=== PATIENT | female | born 1935 | race Caucasian/White ===

== ENCOUNTER 2017-08-25 12:49 | Inpatient (IN) ==
[2017-08-25] MEDS ORDERED: methylPREDNISolone SOD SUC 125 MG/2 ML VIAL IV STA (13:01)
[2017-08-25 13:24] LABS: Basophils % 0.4 % (0.0-0.8); Eosinophils # 0.1 10*3/uL (0.0-0.87); Eosinophils % 1.5 % (0.00-10.9); Hemoglobin 11.1 GM/DL (12.0-16.0); Immature Granulocytes % 0.5 %; Immature Granulocytes Absolute 0.04 #; Lymphocytes # 0.8 10*3/uL (1.4-4.0); Mean Corpuscular HGB Conc 32.6 GM/DL (32-36); Mean Corpuscular Hemoglobin 28 PG (27-34); Mean Corpuscular Volume 84.6 FL (87-102); Mean Platelet Volume 10.6 FL (9.6-12.0); Monocytes # 0.4 10*3/uL (0.11-0.8); Monocytes % 5.3 % (1.7-12.7); Neutrophils # 6.7 10*3/uL (1.4-7.4); Neutrophils % 82.3 % (38.7-73.9); Platelet Count 206 T/CUMM (130-400); Red Blood Count 4.02 MC/CUMM (3.8-5.5); Red Cell Distribution Width 15.9 % (9.3-17.3); White Blood Count 8.1 T/CUMM (4-12)
[2017-08-25] MEDS ORDERED: methylPREDNISolone SOD SUC 40 MG/1 ML VIAL ONE (13:30)
[2017-08-25] MEDS: ALBUTEROL 2.5 MG/3 ML NEB RESP TX SCH ×3 (13:33→13:43)
[2017-08-25 13:49] LABS: Albumin 3.5 G/DL (3.4-5.0); Calcium 9.1 MG/DL (8.5-10.1); Osmolality,Calculated 279.7 MOS/KG (273-304); Potassium 3.7 MMOL/L (3.5-5.1); Total Protein 6.9 G/DL (6.4-8.3); Troponin I Only 0.018 NG/ML (0.00-0.045)
[2017-08-25] MEDS ORDERED: GLUCAGON 1 MG VIAL IM PRN (15:54)
[2017-08-25] MEDS ORDERED: ONDANSETRON 4 MG/2 ML VIAL IV PRN (15:54)
[2017-08-25] MEDS ORDERED: ACETAMINOPHEN 325 MG TABLET PO PRN (15:54)
[2017-08-25] MEDS ORDERED: FUROSEMIDE 40 MG/4 ML VIAL IV STA (15:54)
[2017-08-25] MEDS ORDERED: DEXTROSE 50% 25 GM/50 ML VIAL IV PRN (15:54)
[2017-08-25] MEDS ORDERED: MORPHINE 2 MG/1 ML SYRINGE IV PRN (15:59)
[2017-08-25] MEDS ORDERED: FUROSEMIDE 40 MG/4 ML VIAL ONE (16:29)
[2017-08-25] MEDS ORDERED: ENOXAPARIN 60 MG/0.6 ML SYRINGE ONE (16:29)
[2017-08-25] MEDS: ENOXAPARIN 60 MG/0.6 ML SYRINGE SUBCUT SCH (16:34)
[2017-08-25] MEDS ORDERED: INSULIN LISPRO 100 UNIT/ML ONE (17:12)
[2017-08-25] MEDS: FUROSEMIDE 40 MG/4 ML VIAL IV SCH (17:21)
[2017-08-25] MEDS: INSULIN LISPRO 100 UNIT/ML SUBCUT SCH ×2 (17:57→21:56)
[2017-08-25 19:44] LABS: CKMB % 2.7 %; Troponin I Only 0.015 NG/ML (0.00-0.045)
[2017-08-25] MEDS ORDERED: OXYBUTYNIN XL 10 MG TABLET PO SCH (21:00)
[2017-08-25] MEDS ORDERED: CARVEDILOL 6.25 MG TABLET PO SCH (21:00)
[2017-08-25] MEDS: hydrOXYzine HCL 10 MG TABLET PO SCH (21:41)
[2017-08-25] MEDS: DOCUSATE SODIUM 100 MG CAPSULE PO SCH (21:42)
[2017-08-25] MEDS: GABAPENTIN 300 MG CAPSULE PO SCH (21:43)
[2017-08-25] MEDS: SIMVASTATIN 20 MG TABLET PO SCH (21:44)
[2017-08-25] MEDS: CETIRIZINE 10 MG TABLET PO SCH (21:44)
[2017-08-25] MEDS: BUDESONIDE/FORMOTEROL 160-4.5 INHALER 6 GM INH SCH (21:49)
[2017-08-25 22:54] LABS: CKMB % 2.8 %; Troponin I Only < 0.015 NG/ML (0.00-0.045)
[2017-08-25 23:38] LABS: Apearance,Urine CLEAR (Clear); Bacteria,Urine Few /HPF (Few); Bilirubin,Urine Negative (Negative); Blood, Urine Small mg/dL (Negative); Glucose,Urine (UA) Negative (Negative); Hyaline Casts,Urine 1 /LPF (0-3); Ketones,Urine Negative (Negative); Nitrite,Urine Negative (Negative); Protein,Urine Negative; RBC,Urine 1 /HPF (0-4); Squamous Epithelial Cell,Urine Occasional /HPF (0-10); Urine Color Straw (Yellow); Urine Specific Gravity 1.005 (1.001-1.035); Urine Urobilinogen < 2.0 EU/DL (0.2-1.0); WBC,Urine <1 /HPF (0-6)
[2017-08-26 01:30] LABS: Basophils % 0.2 % (0.0-0.8); Eosinophils % 0.2 % (0.00-10.9); Hematocrit 32.3 VOL% (35.7-47.0); Hemoglobin 10.5 GM/DL (12.0-16.0); Immature Granulocytes % 0.5 %; Immature Granulocytes Absolute 0.03 #; Lymphocytes # 0.8 10*3/uL (1.4-4.0); Lymphocytes % 12.5 % (21.3-54.2); Mean Corpuscular HGB Conc 32.5 GM/DL (32-36); Mean Corpuscular Hemoglobin 27 PG (27-34); Mean Corpuscular Volume 83.9 FL (87-102); Monocytes # 0.3 10*3/uL (0.11-0.8); Monocytes % 5.5 % (1.7-12.7); Neutrophils % 81.1 % (38.7-73.9); Platelet Count 144 T/CUMM (130-400); Red Blood Count 3.85 MC/CUMM (3.8-5.5); Red Cell Distribution Width 15.8 % (9.3-17.3); White Blood Count 6.2 T/CUMM (4-12)
[2017-08-26 02:05] LABS: Troponin I Only < 0.015 NG/ML (0.00-0.045)
[2017-08-26] MEDS: INSULIN LISPRO 100 UNIT/ML SUBCUT SCH ×4 (07:49→23:11)
[2017-08-26 08:16] LABS: Osmolality,Calculated 284.3 MOS/KG (273-304); Potassium 3.6 MMOL/L (3.5-5.1); Risk Ratio 3.67; VLDL CHOLESTEROL 21.4 MG/DL
[2017-08-26] MEDS ORDERED: VALSARTAN 80 MG TABLET PO SCH (09:00)
[2017-08-26] MEDS ORDERED: sitaGLIPtin 100 MG TABLET PO SCH (09:00)
[2017-08-26] MEDS: ASPIRIN EC 81 MG TABLET PO SCH (09:49)
[2017-08-26] MEDS: PANTOPRAZOLE 40 MG TABLET PO SCH (09:49)
[2017-08-26] MEDS: CETIRIZINE 10 MG TABLET PO SCH ×2 (09:49→22:39)
[2017-08-26] MEDS: VALSARTAN 80 MG TABLET PO SCH (09:49)
[2017-08-26] MEDS: hydrOXYzine HCL 10 MG TABLET PO SCH ×2 (09:49→22:39)
[2017-08-26] MEDS: DOCUSATE SODIUM 100 MG CAPSULE PO SCH ×2 (09:49→22:37)
[2017-08-26] MEDS: GABAPENTIN 300 MG CAPSULE PO SCH ×3 (09:49→22:38)
[2017-08-26] MEDS: CARVEDILOL 12.5 MG TABLET PO SCH ×2 (09:49→16:41)
[2017-08-26] MEDS: sitaGLIPtin 25 MG TABLET PO SCH (09:49)
[2017-08-26] MEDS: BUDESONIDE/FORMOTEROL 160-4.5 INHALER 6 GM INH SCH ×2 (09:50→22:40)
[2017-08-26] MEDS: FUROSEMIDE 40 MG/4 ML VIAL IV SCH ×2 (09:51→15:56)
[2017-08-26] MEDS: ENOXAPARIN 60 MG/0.6 ML SYRINGE SUBCUT SCH (16:41)
[2017-08-26] MEDS: TOLTERODINE LA 4 MG CAPSULE PO SCH (22:37)
[2017-08-26] MEDS: SIMVASTATIN 20 MG TABLET PO SCH (22:39)
[2017-08-27] MEDS: INSULIN LISPRO 100 UNIT/ML SUBCUT SCH ×4 (07:24→21:15)
[2017-08-27] MEDS: VALSARTAN 80 MG TABLET PO SCH (08:44)
[2017-08-27] MEDS: sitaGLIPtin 25 MG TABLET PO SCH (08:45)
[2017-08-27] MEDS: DOCUSATE SODIUM 100 MG CAPSULE PO SCH ×2 (08:45→21:15)
[2017-08-27] MEDS: ASPIRIN EC 81 MG TABLET PO SCH (08:45)
[2017-08-27] MEDS: CARVEDILOL 12.5 MG TABLET PO SCH ×2 (08:46→16:18)
[2017-08-27] MEDS: CETIRIZINE 10 MG TABLET PO SCH ×2 (08:46→21:15)
[2017-08-27] MEDS: PANTOPRAZOLE 40 MG TABLET PO SCH (08:46)
[2017-08-27] MEDS: GABAPENTIN 300 MG CAPSULE PO SCH ×3 (08:46→21:15)
[2017-08-27] MEDS: BUDESONIDE/FORMOTEROL 160-4.5 INHALER 6 GM INH SCH ×2 (08:48→21:14)
[2017-08-27] MEDS ORDERED: VALSARTAN 80 MG TABLET PO SCH (09:00)
[2017-08-27] MEDS: FUROSEMIDE 40 MG/4 ML VIAL IV SCH (09:52)
[2017-08-27] MEDS: FUROSEMIDE 40 MG TABLET PO SCH (09:53)
[2017-08-27] MEDS: hydrOXYzine HCL 10 MG TABLET PO SCH ×2 (09:53→21:14)
[2017-08-27] MEDS: ENOXAPARIN 60 MG/0.6 ML SYRINGE SUBCUT SCH (16:19)
[2017-08-27] MEDS ORDERED: TOLTERODINE LA 4 MG CAPSULE PO SCH (21:00)
[2017-08-27] MEDS: TOLTERODINE LA 4 MG CAPSULE PO SCH (21:15)
[2017-08-27] MEDS: SIMVASTATIN 20 MG TABLET PO SCH (21:15)
[2017-08-28] MEDS: ASPIRIN EC 81 MG TABLET PO SCH (09:35)
[2017-08-28] MEDS: VALSARTAN 80 MG TABLET PO SCH (09:35)
[2017-08-28] MEDS: DOCUSATE SODIUM 100 MG CAPSULE PO SCH ×2 (09:35→22:24)
[2017-08-28] MEDS: hydrOXYzine HCL 10 MG TABLET PO SCH ×2 (09:36→22:25)
[2017-08-28] MEDS: BUDESONIDE/FORMOTEROL 160-4.5 INHALER 6 GM INH SCH ×2 (09:36→22:24)
[2017-08-28] MEDS: GABAPENTIN 300 MG CAPSULE PO SCH ×3 (09:36→22:25)
[2017-08-28] MEDS: CETIRIZINE 10 MG TABLET PO SCH ×2 (09:36→22:26)
[2017-08-28] MEDS: sitaGLIPtin 25 MG TABLET PO SCH (09:36)
[2017-08-28] MEDS: CARVEDILOL 12.5 MG TABLET PO SCH ×2 (09:36→16:12)
[2017-08-28] MEDS: FUROSEMIDE 40 MG TABLET PO SCH (09:36)
[2017-08-28] MEDS: INSULIN LISPRO 100 UNIT/ML SUBCUT SCH ×3 (09:36→18:17)
[2017-08-28] MEDS: PANTOPRAZOLE 40 MG TABLET PO SCH (09:36)
[2017-08-28] MEDS: ENOXAPARIN 60 MG/0.6 ML SYRINGE SUBCUT SCH (16:12)
[2017-08-28] MEDS ORDERED: diphenhydrAMINE CAP 25 MG CAPSULE PO ONE (17:49)
[2017-08-28] MEDS ORDERED: MAGNESIUM SULF RIDER 2 GM in PREMIX 1 EACH IV PRN (17:49)
[2017-08-28] MEDS ORDERED: POTASSIUM CHLORIDE RIDER 10 MEQ in PREMIX 1 EACH IV PRN (17:49)
[2017-08-28] MEDS ORDERED: DIAZEPAM 5 MG TABLET PO ONE (17:49)
[2017-08-28] MEDS: SIMVASTATIN 20 MG TABLET PO SCH (22:25)
[2017-08-28] MEDS: TOLTERODINE LA 4 MG CAPSULE PO SCH (22:25)
[2017-08-28] MEDS: SODIUM CHLORIDE 0.9% 1,000 ML IV SCH (22:26)
[2017-08-29 05:11] LABS: Basophils % 0.8 % (0.0-0.8); Eosinophils # 0.4 10*3/uL (0.0-0.87); Eosinophils % 9.3 % (0.00-10.9); Hematocrit 32.5 VOL% (35.7-47.0); Hemoglobin 10.4 GM/DL (12.0-16.0); Immature Granulocytes % 0.5 %; Immature Granulocytes Absolute 0.02 #; Lymphocytes # 0.7 10*3/uL (1.4-4.0); Mean Corpuscular Hemoglobin 28 PG (27-34); Mean Platelet Volume 10.7 FL (9.6-12.0); Monocytes # 0.5 10*3/uL (0.11-0.8); Monocytes % 11.9 % (1.7-12.7); Neutrophils # 2.3 10*3/uL (1.4-7.4); Neutrophils % 59.5 % (38.7-73.9); Platelet Count 155 T/CUMM (130-400); Red Blood Count 3.78 MC/CUMM (3.8-5.5); Red Cell Distribution Width 15.5 % (9.3-17.3); White Blood Count 3.8 T/CUMM (4-12)
[2017-08-29 05:43] LABS: Calcium 8.4 MG/DL (8.5-10.1); Osmolality,Calculated 285.3 MOS/KG (273-304); Potassium 3.7 MMOL/L (3.5-5.1)
[2017-08-29] MEDS: INSULIN LISPRO 100 UNIT/ML SUBCUT SCH ×5 (07:15→22:23)
[2017-08-29] MEDS ORDERED: DIAZEPAM 5 MG TABLET PO ONE (09:30)
[2017-08-29] MEDS ORDERED: diphenhydrAMINE CAP 25 MG CAPSULE PO ONE (09:30)
[2017-08-29] MEDS: VALSARTAN 80 MG TABLET PO SCH (09:53)
[2017-08-29] MEDS: hydrOXYzine HCL 10 MG TABLET PO SCH ×2 (09:53→22:23)
[2017-08-29] MEDS: CARVEDILOL 12.5 MG TABLET PO SCH ×2 (09:53→18:00)
[2017-08-29] MEDS: sitaGLIPtin 25 MG TABLET PO SCH (09:54)
[2017-08-29] MEDS: GABAPENTIN 300 MG CAPSULE PO SCH ×3 (09:54→22:22)
[2017-08-29] MEDS: PANTOPRAZOLE 40 MG TABLET PO SCH (09:54)
[2017-08-29] MEDS: DOCUSATE SODIUM 100 MG CAPSULE PO SCH ×2 (09:54→22:22)
[2017-08-29] MEDS: FUROSEMIDE 40 MG TABLET PO SCH ×2 (09:54→10:03)
[2017-08-29] MEDS: CETIRIZINE 10 MG TABLET PO SCH ×2 (09:54→22:23)
[2017-08-29] MEDS: ASPIRIN EC 81 MG TABLET PO SCH (09:54)
[2017-08-29] MEDS: BUDESONIDE/FORMOTEROL 160-4.5 INHALER 6 GM INH SCH ×2 (10:00→22:24)
[2017-08-29] MEDS ORDERED: LIDOCAINE 1% 20 ML VIAL ONE (11:53)
[2017-08-29] MEDS ORDERED: MIDAZOLAM 2 MG/2 ML VIAL ONE (11:54)
[2017-08-29] MEDS ORDERED: MEPERIDINE 25 MG/1 ML VIAL ONE (11:54)
[2017-08-29] MEDS ORDERED: HEPARIN 5,000 UNIT/1 ML VIAL ONE (12:08)
[2017-08-29] MEDS: SODIUM CHLORIDE 0.9% 1,000 ML IV SCH (13:58)
[2017-08-29] MEDS: ENOXAPARIN 60 MG/0.6 ML SYRINGE SUBCUT SCH (18:00)
[2017-08-29] MEDS: TOLTERODINE LA 4 MG CAPSULE PO SCH (22:22)
[2017-08-29] MEDS: SIMVASTATIN 20 MG TABLET PO SCH (22:23)
[2017-08-30 05:31] LABS: Basophils % 0.7 % (0.0-0.8); Eosinophils # 0.4 10*3/uL (0.0-0.87); Eosinophils % 9.6 % (0.00-10.9); Hematocrit 30.6 VOL% (35.7-47.0); Hemoglobin 9.8 GM/DL (12.0-16.0); Immature Granulocytes % 0.5 %; Immature Granulocytes Absolute 0.02 #; Lymphocytes # 0.8 10*3/uL (1.4-4.0); Lymphocytes % 17.7 % (21.3-54.2); Mean Corpuscular Hemoglobin 28 PG (27-34); Mean Corpuscular Volume 86.7 FL (87-102); Mean Platelet Volume 10.6 FL (9.6-12.0); Monocytes # 0.5 10*3/uL (0.11-0.8); Monocytes % 12.4 % (1.7-12.7); Neutrophils # 2.6 10*3/uL (1.4-7.4); Neutrophils % 59.1 % (38.7-73.9); Platelet Count 148 T/CUMM (130-400); Red Blood Count 3.53 MC/CUMM (3.8-5.5); Red Cell Distribution Width 15.4 % (9.3-17.3); White Blood Count 4.4 T/CUMM (4-12)
[2017-08-30 06:00] LABS: Calcium 8.6 MG/DL (8.5-10.1); Osmolality,Calculated 286.1 MOS/KG (273-304); Potassium 3.9 MMOL/L (3.5-5.1)
[2017-08-30 06:01] LABS: Calcium 8.6 MG/DL (8.5-10.1); Potassium 3.9 MMOL/L (3.5-5.1)
[2017-08-30] MEDS: INSULIN LISPRO 100 UNIT/ML SUBCUT SCH ×2 (08:36→12:15)
[2017-08-30] MEDS: sitaGLIPtin 25 MG TABLET PO SCH (09:52)
[2017-08-30] MEDS: VALSARTAN 80 MG TABLET PO SCH (09:52)
[2017-08-30] MEDS: ASPIRIN EC 81 MG TABLET PO SCH (09:53)
[2017-08-30] MEDS: CETIRIZINE 10 MG TABLET PO SCH (09:53)
[2017-08-30] MEDS: PANTOPRAZOLE 40 MG TABLET PO SCH (09:53)
[2017-08-30] MEDS: FUROSEMIDE 40 MG TABLET PO SCH (09:53)
[2017-08-30] MEDS: CARVEDILOL 12.5 MG TABLET PO SCH (09:53)
[2017-08-30] MEDS: DOCUSATE SODIUM 100 MG CAPSULE PO SCH (09:53)
[2017-08-30] MEDS: hydrOXYzine HCL 10 MG TABLET PO SCH (09:53)
[2017-08-30] MEDS: GABAPENTIN 300 MG CAPSULE PO SCH ×2 (09:53→13:27)
[2017-08-30] MEDS: BUDESONIDE/FORMOTEROL 160-4.5 INHALER 6 GM INH SCH (09:54)
[2017-08-30 17:13] VITALS: BP 129/62
== END 2017-08-30 17:00 | disposition home health service (06) | DRG 287 ==
LOC: EDBD → EDUNIT# → N.ED 12:49 → N.EDINP 15:54 → N.TELEN 18:50
PROVIDERS: ADMIT Family Medicine; ATTEND Family Medicine

== ENCOUNTER 2017-09-23 10:39 | Inpatient (IN) ==
[2017-09-23] MEDS ORDERED: methylPREDNISolone SOD SUC 125 MG/2 ML VIAL IV STA (11:00)
[2017-09-23] MEDS ORDERED: ONDANSETRON 4 MG/2 ML VIAL IV STA (11:00)
[2017-09-23] MEDS ORDERED: cefTRIAXone 1,000 MG in SODIUM CHLORIDE 0.9% 100 ML IV STA (11:00)
[2017-09-23] MEDS ORDERED: ALBUTEROL NEB SOLN 5 MG/ML 20 ML/BOTTLE RESP TX SCH (11:00)
[2017-09-23] MEDS ORDERED: SODIUM CHLORIDE 0.9% 500 ML IV STA (11:00)
[2017-09-23 11:42] LABS: ABG Base Excess 1.2 MMOL/L (-2.5-2.5); ABG HCO3 25.5 MMOL/L (20-26); ABG Oxygen Saturation 95.7 % (95-100); ABG PCO2 40.3 MM HG (35-48); ABG PH 7.415 (7.35-7.45); ABG PO2 75.6 MM HG (80-95); ABG TCO2 23.3 MMOL/L (23-27)
[2017-09-23] MEDS ORDERED: ONDANSETRON 4 MG/2 ML VIAL ONE (11:53)
[2017-09-23] MEDS ORDERED: cefTRIAXone 1,000 MG VIAL ONE (11:53)
[2017-09-23] MEDS ORDERED: methylPREDNISolone SOD SUC 125 MG/2 ML VIAL ONE (11:53)
[2017-09-23 12:20] LABS: Basophils % 0.7 % (0.0-0.8); Eosinophils # 0.2 10*3/uL (0.0-0.87); Eosinophils % 4.6 % (0.00-10.9); Hematocrit 33.3 VOL% (35.7-47.0); Hemoglobin 10.3 GM/DL (12.0-16.0); Immature Granulocytes % 0.2 %; Immature Granulocytes Absolute 0.01 #; Lymphocytes # 0.4 10*3/uL (1.4-4.0); Lymphocytes % 10.2 % (21.3-54.2); Mean Corpuscular HGB Conc 30.9 GM/DL (32-36); Mean Corpuscular Hemoglobin 28 PG (27-34); Mean Corpuscular Volume 89.8 FL (87-102); Mean Platelet Volume 11.5 FL (9.6-12.0); Monocytes # 0.3 10*3/uL (0.11-0.8); Monocytes % 6.8 % (1.7-12.7); Neutrophils # 3.2 10*3/uL (1.4-7.4); Neutrophils % 77.5 % (38.7-73.9); Platelet Count 97 T/CUMM (130-400); Red Blood Count 3.71 MC/CUMM (3.8-5.5); Red Cell Distribution Width 16.1 % (9.3-17.3); White Blood Count 4.1 T/CUMM (4-12)
[2017-09-23 12:35] LABS: INR 1.1; PT Patient Result 11.7 SECS
[2017-09-23 12:47] LABS: Alanine Aminotransferase 20 U/L (13-56); Albumin 3.3 G/DL (3.4-5.0); Alkaline Phosphatase 64 U/L (45-117); Aspartate Amino Transferase 15 U/L (0-37); Blood Urea Nitrogen 22 MG/DL (7-18); Calcium 8.7 MG/DL (8.5-10.1); Glucose 104 MG/DL (74-106); Osmolality,Calculated 275.8 MOS/KG (273-304); Potassium 4.4 MMOL/L (3.5-5.1); Sodium 137 MMOL/L (136-145); Total Protein 6.7 G/DL (6.4-8.3); Troponin I Only < 0.015 NG/ML (0.00-0.045)
[2017-09-23 12:59] LABS: Apearance,Urine CLOUDY (Clear); Bacteria,Urine Moderate /HPF (Few); Bilirubin,Urine Negative (Negative); Blood, Urine Small mg/dL (Negative); Glucose,Urine (UA) Negative (Negative); Ketones,Urine Negative (Negative); Mucus,Urine Occasional /LPF (Occasional); Nitrite,Urine Negative (Negative); Protein,Urine 30 MG/DL; RBC,Urine 8 /HPF (0-4); Urine Color Amber (Yellow); Urine Specific Gravity 1.019 (1.001-1.035); WBC,Urine 658 /HPF (0-6)
[2017-09-23 13:05] LABS: Hypochromasia Slight; Target Cells Slight
[2017-09-23] MEDS ORDERED: methylPREDNISolone SOD SUC 40 MG/1 ML VIAL IV SCH (15:26)
[2017-09-23] MEDS ORDERED: ALBUTEROL 2.5 MG/3 ML NEB RESP TX PRN (15:26)
[2017-09-23] MEDS ORDERED: CETIRIZINE 5 MG TABLET PO PRN (15:26)
[2017-09-23] MEDS ORDERED: diphenhydrAMINE CAP 25 MG CAPSULE PO PRN (15:26)
[2017-09-23] MEDS ORDERED: GLUCAGON 1 MG VIAL IM PRN (15:26)
[2017-09-23] MEDS ORDERED: MORPHINE 4 MG/1 ML VIAL IV PRN (15:26)
[2017-09-23] MEDS ORDERED: traMADol 50 MG TABLET PO PRN (15:26)
[2017-09-23] MEDS ORDERED: ACETAMINOPHEN 325 MG TABLET PO PRN (15:26)
[2017-09-23] MEDS ORDERED: ONDANSETRON 4 MG/2 ML VIAL IV PRN (15:26)
[2017-09-23] MEDS ORDERED: DEXTROSE 50% 25 GM/50 ML VIAL IV PRN (15:26)
[2017-09-23] MEDS ORDERED: ALBUTEROL/IPRATROPIUM 3 ML NEB RESP TX PRN (15:26)
[2017-09-23] MEDS ORDERED: PSEUDOEPHEDRINE 30 MG TABLET PO PRN (15:45)
[2017-09-23] MEDS ORDERED: LEVOFLOXACIN INJ 500 MG in PREMIX 1 EACH IV ONE (16:00)
[2017-09-23] MEDS: INSULIN REGULAR 100 UNIT/ML SUBCUT SCH ×2 (16:32→21:10)
[2017-09-23] MEDS: FUROSEMIDE 20 MG/2 ML VIAL IV SCH (16:33)
[2017-09-23] MEDS: SODIUM CHLORIDE 0.9% 1,000 ML IV SCH (16:37)
[2017-09-23] MEDS: DOCUSATE SODIUM 100 MG CAPSULE PO SCH (21:09)
[2017-09-23] MEDS: SIMVASTATIN 20 MG TABLET PO SCH (21:10)
[2017-09-23] MEDS: CARVEDILOL 6.25 MG TABLET PO SCH (21:10)
[2017-09-23] MEDS: GABAPENTIN 300 MG CAPSULE PO SCH (21:10)
[2017-09-23] MEDS: TOLTERODINE LA 4 MG CAPSULE PO SCH (21:10)
[2017-09-23] MEDS: BUDESONIDE/FORMOTEROL 160-4.5 INHALER 6 GM INH SCH (22:00)
[2017-09-24 06:13] LABS: Hematocrit 30.5 VOL% (35.7-47.0); Hemoglobin 9.5 GM/DL (12.0-16.0); Immature Granulocytes % 0.7 %; Immature Granulocytes Absolute 0.02 #; Lymphocytes # 0.3 10*3/uL (1.4-4.0); Lymphocytes % 11.1 % (21.3-54.2); Mean Corpuscular HGB Conc 31.1 GM/DL (32-36); Mean Corpuscular Hemoglobin 27 PG (27-34); Mean Corpuscular Volume 87.9 FL (87-102); Mean Platelet Volume 11.5 FL (9.6-12.0); Monocytes # 0.1 10*3/uL (0.11-0.8); Monocytes % 3.6 % (1.7-12.7); Neutrophils # 2.6 10*3/uL (1.4-7.4); Neutrophils % 84.6 % (38.7-73.9); Platelet Count 96 T/CUMM (130-400); Red Blood Count 3.47 MC/CUMM (3.8-5.5); Red Cell Distribution Width 15.9 % (9.3-17.3); White Blood Count 3.1 T/CUMM (4-12)
[2017-09-24 06:49] LABS: Albumin 3.1 G/DL (3.4-5.0); Calcium 8.7 MG/DL (8.5-10.1); Osmolality,Calculated 284.5 MOS/KG (273-304); Potassium 4.3 MMOL/L (3.5-5.1); Total Protein 6.2 G/DL (6.4-8.3)
[2017-09-24] MEDS: SODIUM CHLORIDE 0.9% 1,000 ML IV SCH (07:18)
[2017-09-24 07:59] LABS: Band Neutrophils 4 % (0-10); Lymphocytes 9 % (20-55); Platelet Estimate Decreased; Segmented Neutrophils 86 % (50-85); Total Cells Counted 100
[2017-09-24] MEDS ORDERED: PANTOPRAZOLE 40 MG VIAL IV SCH (09:00)
[2017-09-24] MEDS ORDERED: ALBUTEROL/IPRATROPIUM 3 ML NEB RESP TX ONE (09:47)
[2017-09-24] MEDS ORDERED: SODIUM CHLORIDE 0.9% 1,000 ML IV SCH (10:00)
[2017-09-24] MEDS: FUROSEMIDE 40 MG TABLET PO SCH (10:02)
[2017-09-24] MEDS: GABAPENTIN 300 MG CAPSULE PO SCH ×3 (10:02→21:28)
[2017-09-24] MEDS: sitaGLIPtin 25 MG TABLET PO SCH (10:02)
[2017-09-24] MEDS: VALSARTAN 80 MG TABLET PO SCH (10:02)
[2017-09-24] MEDS: INSULIN REGULAR 100 UNIT/ML SUBCUT SCH ×4 (10:02→21:28)
[2017-09-24] MEDS: PANTOPRAZOLE 40 MG TABLET PO SCH (10:02)
[2017-09-24] MEDS: CARVEDILOL 6.25 MG TABLET PO SCH ×2 (10:03→16:26)
[2017-09-24] MEDS: ASPIRIN EC 81 MG TABLET PO SCH (10:03)
[2017-09-24] MEDS: BUDESONIDE/FORMOTEROL 160-4.5 INHALER 6 GM INH SCH ×2 (10:03→21:29)
[2017-09-24] MEDS: DOCUSATE SODIUM 100 MG CAPSULE PO SCH ×2 (10:03→21:28)
[2017-09-24] MEDS: FUROSEMIDE 20 MG/2 ML VIAL IV SCH (10:11)
[2017-09-24] MEDS ORDERED: FUROSEMIDE 20 MG/2 ML VIAL IV ONE (10:37)
[2017-09-24] MEDS ORDERED: FUROSEMIDE 40 MG/4 ML VIAL IV ONE (10:54)
[2017-09-24] MEDS ORDERED: cefTRIAXone 1,000 MG in SODIUM CHLORIDE 0.9% 100 ML IV SCH (12:00)
[2017-09-24] MEDS: methylPREDNISolone SOD SUC 40 MG/1 ML VIAL IV SCH ×2 (12:04→21:28)
[2017-09-24] MEDS: LEVOFLOXACIN INJ 500 MG in PREMIX 1 EACH IV SCH (12:05)
[2017-09-24] MEDS: cefTRIAXone 1,000 MG in SODIUM CHLORIDE 0.9% 100 ML IV SCH (14:16)
[2017-09-24] MEDS ORDERED: LEVOFLOXACIN INJ 250 MG in PREMIX 1 EACH IV SCH (16:00)
[2017-09-24] MEDS: TOLTERODINE LA 4 MG CAPSULE PO SCH (21:28)
[2017-09-24] MEDS: SIMVASTATIN 20 MG TABLET PO SCH (21:28)
[2017-09-25] MEDS: methylPREDNISolone SOD SUC 40 MG/1 ML VIAL IV SCH ×3 (03:48→18:08)
[2017-09-25 05:27] LABS: Hematocrit 31.9 VOL% (35.7-47.0); Hemoglobin 9.9 GM/DL (12.0-16.0); Immature Granulocytes % 0.5 %; Immature Granulocytes Absolute 0.03 #; Lymphocytes # 0.5 10*3/uL (1.4-4.0); Lymphocytes % 7.9 % (21.3-54.2); Mean Corpuscular Hemoglobin 27 PG (27-34); Mean Corpuscular Volume 88.1 FL (87-102); Mean Platelet Volume 11.3 FL (9.6-12.0); Monocytes # 0.1 10*3/uL (0.11-0.8); Monocytes % 2.4 % (1.7-12.7); Neutrophils # 5.2 10*3/uL (1.4-7.4); Neutrophils % 89.2 % (38.7-73.9); Platelet Count 109 T/CUMM (130-400); Red Blood Count 3.62 MC/CUMM (3.8-5.5); Red Cell Distribution Width 15.9 % (9.3-17.3); White Blood Count 5.8 T/CUMM (4-12)
[2017-09-25 05:45] LABS: Calcium 8.8 MG/DL (8.5-10.1); Osmolality,Calculated 282.7 MOS/KG (273-304); Potassium 3.7 MMOL/L (3.5-5.1)
[2017-09-25 05:50] LABS: Hypochromasia 1+; Ovalocytes Slight; Platelet Estimate Decreased
[2017-09-25 05:51] LABS: Giant Platelets Few
[2017-09-25] MEDS: INSULIN REGULAR 100 UNIT/ML SUBCUT SCH ×4 (09:14→20:53)
[2017-09-25] MEDS: sitaGLIPtin 25 MG TABLET PO SCH (09:14)
[2017-09-25] MEDS: DOCUSATE SODIUM 100 MG CAPSULE PO SCH ×2 (09:14→20:53)
[2017-09-25] MEDS: PANTOPRAZOLE 40 MG TABLET PO SCH (09:14)
[2017-09-25] MEDS: CARVEDILOL 6.25 MG TABLET PO SCH ×2 (09:14→16:03)
[2017-09-25] MEDS: VALSARTAN 80 MG TABLET PO SCH (09:14)
[2017-09-25] MEDS: BUDESONIDE/FORMOTEROL 160-4.5 INHALER 6 GM INH SCH ×2 (09:15→20:57)
[2017-09-25] MEDS: ASPIRIN EC 81 MG TABLET PO SCH (09:15)
[2017-09-25] MEDS: GABAPENTIN 300 MG CAPSULE PO SCH ×3 (09:15→20:52)
[2017-09-25] MEDS: FUROSEMIDE 40 MG TABLET PO SCH (09:15)
[2017-09-25] MEDS: LEVOFLOXACIN INJ 500 MG in PREMIX 1 EACH IV SCH (10:40)
[2017-09-25] MEDS: cefTRIAXone 1,000 MG in SODIUM CHLORIDE 0.9% 100 ML IV SCH (14:24)
[2017-09-25] MEDS: TOLTERODINE LA 4 MG CAPSULE PO SCH (20:53)
[2017-09-25] MEDS: SIMVASTATIN 20 MG TABLET PO SCH (20:53)
[2017-09-26] MEDS: methylPREDNISolone SOD SUC 40 MG/1 ML VIAL IV SCH ×3 (03:10→18:10)
[2017-09-26] MEDS: INSULIN REGULAR 100 UNIT/ML SUBCUT SCH ×4 (09:09→21:19)
[2017-09-26] MEDS: PANTOPRAZOLE 40 MG TABLET PO SCH (09:10)
[2017-09-26] MEDS: sitaGLIPtin 25 MG TABLET PO SCH (09:10)
[2017-09-26] MEDS: CARVEDILOL 6.25 MG TABLET PO SCH ×2 (09:10→16:46)
[2017-09-26] MEDS: GABAPENTIN 300 MG CAPSULE PO SCH ×3 (09:10→20:13)
[2017-09-26] MEDS: ASPIRIN EC 81 MG TABLET PO SCH (09:10)
[2017-09-26] MEDS: VALSARTAN 80 MG TABLET PO SCH (09:10)
[2017-09-26] MEDS: DOCUSATE SODIUM 100 MG CAPSULE PO SCH ×2 (09:10→20:14)
[2017-09-26] MEDS: FUROSEMIDE 40 MG TABLET PO SCH (09:10)
[2017-09-26] MEDS: BUDESONIDE/FORMOTEROL 160-4.5 INHALER 6 GM INH SCH ×2 (09:11→20:15)
[2017-09-26] MEDS: LEVOFLOXACIN INJ 500 MG in PREMIX 1 EACH IV SCH (10:35)
[2017-09-26] MEDS: cefTRIAXone 1,000 MG in SODIUM CHLORIDE 0.9% 100 ML IV SCH (15:24)
[2017-09-26] MEDS ORDERED: BISACODYL 10 MG SUPP RECTAL PRN (16:51)
[2017-09-26] MEDS ORDERED: MAGNESIUM HYDROXIDE SUSP 30 ML UDCUP PO PRN (16:51)
[2017-09-26] MEDS: TOLTERODINE LA 4 MG CAPSULE PO SCH (20:13)
[2017-09-26] MEDS: SIMVASTATIN 20 MG TABLET PO SCH (20:14)
[2017-09-27] MEDS: methylPREDNISolone SOD SUC 40 MG/1 ML VIAL IV SCH (02:43)
[2017-09-27] MEDS: INSULIN REGULAR 100 UNIT/ML SUBCUT SCH ×2 (09:16→13:32)
[2017-09-27] MEDS: sitaGLIPtin 25 MG TABLET PO SCH (09:17)
[2017-09-27] MEDS: PANTOPRAZOLE 40 MG TABLET PO SCH (09:17)
[2017-09-27] MEDS: DOCUSATE SODIUM 100 MG CAPSULE PO SCH (09:17)
[2017-09-27] MEDS: FUROSEMIDE 40 MG TABLET PO SCH (09:17)
[2017-09-27] MEDS: ASPIRIN EC 81 MG TABLET PO SCH (09:17)
[2017-09-27] MEDS: CARVEDILOL 6.25 MG TABLET PO SCH (09:17)
[2017-09-27] MEDS: GABAPENTIN 300 MG CAPSULE PO SCH ×2 (09:18→13:32)
[2017-09-27] MEDS: VALSARTAN 80 MG TABLET PO SCH (09:18)
[2017-09-27] MEDS: BUDESONIDE/FORMOTEROL 160-4.5 INHALER 6 GM INH SCH (09:25)
[2017-09-27] MEDS ORDERED: predniSONE 20 MG TABLET PO SCH (10:00)
[2017-09-27 11:53] VITALS: BP 139/73
[2017-09-28] MEDS ORDERED: LEVOFLOXACIN 500 MG TABLET PO SCH (09:00)
== END 2017-09-27 14:45 | disposition home or self-care (01) | DRG 194 ==
LOC: N.ED 10:39 → N.EDINP 14:32 → N.TELEN 15:26
PROVIDERS: ADMIT Family Medicine; ATTEND Family Medicine

== ENCOUNTER 2017-12-23 11:27 | Inpatient (IN) ==
[2017-12-23] MEDS ORDERED: methylPREDNISolone SOD SUC 125 MG/2 ML VIAL IV STA (12:08)
[2017-12-23] MEDS ORDERED: FUROSEMIDE 40 MG/4 ML VIAL IV STA (12:08)
[2017-12-23] MEDS ORDERED: ALBUTEROL/IPRATROPIUM 3 ML NEB RESP TX STA (12:09)
[2017-12-23 12:24] LABS: Basophils # 0.1 10*3/uL (0.0-0.2); Basophils % 0.5 % (0.0-0.8); Eosinophils # 0.1 10*3/uL (0.0-0.87); Eosinophils % 1.1 % (0.00-10.9); Hematocrit 35.2 VOL% (35.7-47.0); Hemoglobin 11.1 GM/DL (12.0-16.0); Immature Granulocytes % 0.4 %; Immature Granulocytes Absolute 0.04 #; Lymphocytes # 0.8 10*3/uL (1.4-4.0); Lymphocytes % 8.7 % (21.3-54.2); Mean Corpuscular HGB Conc 31.5 GM/DL (32-36); Mean Corpuscular Hemoglobin 29 PG (27-34); Mean Platelet Volume 10.9 FL (9.6-12.0); Monocytes # 0.5 10*3/uL (0.11-0.8); Monocytes % 5.8 % (1.7-12.7); Neutrophils # 7.7 10*3/uL (1.4-7.4); Neutrophils % 83.5 % (38.7-73.9); Platelet Count 163 T/CUMM (130-400); Red Blood Count 3.87 MC/CUMM (3.8-5.5); Red Cell Distribution Width 16.8 % (9.3-17.3); White Blood Count 9.2 T/CUMM (4-12)
[2017-12-23 12:40] LABS: Bilirubin,Total 2.2 MG/DL (0.2-1.0); Calcium 9.7 MG/DL (8.5-10.1); Osmolality,Calculated 281.5 MOS/KG (273-304); Potassium 3.9 MMOL/L (3.5-5.1); Total Protein 7.5 G/DL (6.4-8.3)
[2017-12-23] MEDS ORDERED: ACETAMINOPHEN 325 MG TABLET PO PRN ×2 (15:08→15:14)
[2017-12-23] MEDS ORDERED: ONDANSETRON 4 MG/2 ML VIAL IV PRN (15:08)
[2017-12-23] MEDS ORDERED: traMADol 50 MG TABLET PO PRN (15:14)
[2017-12-23] MEDS ORDERED: MORPHINE 4 MG/1 ML VIAL IV ONE (17:29)
[2017-12-23] MEDS ORDERED: LORazepam 1 MG TABLET PO PRN (17:29)
[2017-12-23] MEDS ORDERED: FUROSEMIDE 40 MG/4 ML VIAL IV ONE (17:32)
[2017-12-23 18:28] LABS: ABG Base Excess -0.4 MMOL/L (-2.5-2.5); ABG HCO3 23.5 MMOL/L (20-26); ABG Oxygen Saturation 67.9 % (95-100); ABG PCO2 32.7 MM HG (35-48); ABG PH 7.452 (7.35-7.45); ABG TCO2 20.5 MMOL/L (23-27)
[2017-12-23 18:30] LABS: ABG PO2 38.1 MM HG (80-95)
[2017-12-23] MEDS ORDERED: ALBUTEROL 2.5 MG/3 ML NEB RESP TX PRN (19:56)
[2017-12-23 20:19] LABS: ABG Base Excess -0.3 MMOL/L (-2.5-2.5); ABG HCO3 22.5 MMOL/L (20-26); ABG Oxygen Saturation 94.5 % (95-100); ABG PCO2 31.1 MM HG (35-48); ABG PH 7.477 (7.35-7.45); ABG PO2 78.3 MM HG (80-95); ABG TCO2 23.4 MMOL/L (23-27); Allen Test Positive; Pt O2 Delivery Device Venturi Mask
[2017-12-23] MEDS ORDERED: MORPHINE 4 MG/1 ML VIAL IV PRN (20:22)
[2017-12-23] MEDS: ALBUTEROL/IPRATROPIUM 3 ML NEB RESP TX SCH (20:59)
[2017-12-23] MEDS ORDERED: methylPREDNISolone SOD SUC 40 MG/1 ML VIAL IV SCH (21:00)
[2017-12-23] MEDS: BUDESONIDE/FORMOTEROL 160-4.5 INHALER 6 GM INH SCH (21:00)
[2017-12-23] MEDS: TOLTERODINE LA 4 MG CAPSULE PO SCH (21:06)
[2017-12-23] MEDS: CARVEDILOL 6.25 MG TABLET PO SCH (21:07)
[2017-12-23] MEDS: DOCUSATE SODIUM 100 MG CAPSULE PO SCH (21:07)
[2017-12-23] MEDS: GABAPENTIN 300 MG CAPSULE PO SCH (21:07)
[2017-12-23] MEDS: ENOXAPARIN 30 MG/0.3 ML SYRINGE SUBCUT SCH (21:07)
[2017-12-24] MEDS: ALBUTEROL/IPRATROPIUM 3 ML NEB RESP TX SCH ×4 (00:35→20:08)
[2017-12-24 03:30] LABS: Calcium 9.8 MG/DL (8.5-10.1); Osmolality,Calculated 284.5 MOS/KG (273-304); Potassium 3.3 MMOL/L (3.5-5.1)
[2017-12-24] MEDS: INSULIN REGULAR 100 UNIT/ML SUBCUT SCH ×4 (08:29→20:24)
[2017-12-24] MEDS ORDERED: PANTOPRAZOLE 40 MG TABLET PO SCH (09:00)
[2017-12-24] MEDS: VALSARTAN 80 MG TABLET PO SCH (09:00)
[2017-12-24] MEDS: DOCUSATE SODIUM 100 MG CAPSULE PO SCH ×2 (09:00→20:24)
[2017-12-24] MEDS: ASPIRIN EC 81 MG TABLET PO SCH (09:00)
[2017-12-24] MEDS: CARVEDILOL 6.25 MG TABLET PO SCH ×2 (09:00→20:24)
[2017-12-24] MEDS: GABAPENTIN 300 MG CAPSULE PO SCH ×3 (09:00→20:23)
[2017-12-24] MEDS: PANTOPRAZOLE 40 MG TABLET PO SCH (09:00)
[2017-12-24] MEDS: POTASSIUM CHLORIDE 20 MEQ TABLET PO SCH ×2 (09:00→20:26)
[2017-12-24] MEDS: sitaGLIPtin 25 MG TABLET PO SCH (09:00)
[2017-12-24] MEDS: BUDESONIDE/FORMOTEROL 160-4.5 INHALER 6 GM INH SCH ×2 (09:01→20:27)
[2017-12-24] MEDS: FUROSEMIDE 40 MG/4 ML VIAL IV SCH ×2 (09:01→15:31)
[2017-12-24] MEDS: TOLTERODINE LA 4 MG CAPSULE PO SCH (20:23)
[2017-12-24] MEDS: ENOXAPARIN 30 MG/0.3 ML SYRINGE SUBCUT SCH (20:26)
[2017-12-25] MEDS: ALBUTEROL/IPRATROPIUM 3 ML NEB RESP TX SCH ×4 (00:55→19:27)
[2017-12-25] MEDS: INSULIN REGULAR 100 UNIT/ML SUBCUT SCH ×4 (08:04→21:51)
[2017-12-25] MEDS: sitaGLIPtin 25 MG TABLET PO SCH (08:38)
[2017-12-25] MEDS: BUDESONIDE/FORMOTEROL 160-4.5 INHALER 6 GM INH SCH ×2 (08:38→21:52)
[2017-12-25] MEDS: GABAPENTIN 300 MG CAPSULE PO SCH ×3 (08:38→21:52)
[2017-12-25] MEDS: POTASSIUM CHLORIDE 20 MEQ TABLET PO SCH ×2 (08:39→21:52)
[2017-12-25] MEDS: VALSARTAN 80 MG TABLET PO SCH (08:39)
[2017-12-25] MEDS: CARVEDILOL 6.25 MG TABLET PO SCH ×2 (08:39→21:52)
[2017-12-25] MEDS: ASPIRIN EC 81 MG TABLET PO SCH (08:39)
[2017-12-25] MEDS: DOCUSATE SODIUM 100 MG CAPSULE PO SCH ×2 (08:39→21:52)
[2017-12-25] MEDS: PANTOPRAZOLE 40 MG TABLET PO SCH (08:39)
[2017-12-25] MEDS: FUROSEMIDE 40 MG/4 ML VIAL IV SCH ×2 (08:39→15:59)
[2017-12-25 11:36] LABS: Osmolality,Calculated 284.5 MOS/KG (273-304); Potassium 3.9 MMOL/L (3.5-5.1)
[2017-12-25] MEDS: TOLTERODINE LA 4 MG CAPSULE PO SCH (21:51)
[2017-12-25] MEDS: ENOXAPARIN 30 MG/0.3 ML SYRINGE SUBCUT SCH (21:52)
[2017-12-26] MEDS: ALBUTEROL/IPRATROPIUM 3 ML NEB RESP TX SCH ×4 (02:00→20:16)
[2017-12-26 05:04] LABS: Osmolality,Calculated 289.1 MOS/KG (273-304); Potassium 3.5 MMOL/L (3.5-5.1)
[2017-12-26 05:07] LABS: Risk Ratio 2.95; VLDL CHOLESTEROL 21.8 MG/DL
[2017-12-26] MEDS: INSULIN REGULAR 100 UNIT/ML SUBCUT SCH ×4 (08:09→20:33)
[2017-12-26] MEDS: POTASSIUM CHLORIDE 20 MEQ TABLET PO SCH ×2 (08:50→20:34)
[2017-12-26] MEDS: VALSARTAN 80 MG TABLET PO SCH (08:50)
[2017-12-26] MEDS: sitaGLIPtin 25 MG TABLET PO SCH (08:50)
[2017-12-26] MEDS: FUROSEMIDE 40 MG/4 ML VIAL IV SCH ×2 (08:50→16:10)
[2017-12-26] MEDS: CARVEDILOL 6.25 MG TABLET PO SCH ×2 (08:50→20:34)
[2017-12-26] MEDS: BUDESONIDE/FORMOTEROL 160-4.5 INHALER 6 GM INH SCH ×2 (08:50→20:34)
[2017-12-26] MEDS: GABAPENTIN 300 MG CAPSULE PO SCH ×3 (08:50→20:34)
[2017-12-26] MEDS: PANTOPRAZOLE 40 MG TABLET PO SCH (08:50)
[2017-12-26] MEDS: DOCUSATE SODIUM 100 MG CAPSULE PO SCH ×2 (08:51→20:34)
[2017-12-26] MEDS: ASPIRIN EC 81 MG TABLET PO SCH (08:51)
[2017-12-26] MEDS: ENOXAPARIN 30 MG/0.3 ML SYRINGE SUBCUT SCH (20:33)
[2017-12-26] MEDS: TOLTERODINE LA 4 MG CAPSULE PO SCH (20:34)
[2017-12-27] MEDS: ALBUTEROL/IPRATROPIUM 3 ML NEB RESP TX SCH ×4 (02:08→19:10)
[2017-12-27 05:24] LABS: Calcium 9.2 MG/DL (8.5-10.1); Osmolality,Calculated 283.4 MOS/KG (273-304)
[2017-12-27] MEDS: INSULIN REGULAR 100 UNIT/ML SUBCUT SCH ×4 (07:44→21:07)
[2017-12-27] MEDS: GABAPENTIN 300 MG CAPSULE PO SCH ×3 (08:45→21:06)
[2017-12-27] MEDS: sitaGLIPtin 25 MG TABLET PO SCH (08:45)
[2017-12-27] MEDS: POTASSIUM CHLORIDE 20 MEQ TABLET PO SCH ×2 (08:46→21:07)
[2017-12-27] MEDS: ASPIRIN EC 81 MG TABLET PO SCH (08:46)
[2017-12-27] MEDS: FUROSEMIDE 40 MG/4 ML VIAL IV SCH ×2 (08:46→17:25)
[2017-12-27] MEDS: VALSARTAN 80 MG TABLET PO SCH (08:46)
[2017-12-27] MEDS: PANTOPRAZOLE 40 MG TABLET PO SCH (08:46)
[2017-12-27] MEDS: DOCUSATE SODIUM 100 MG CAPSULE PO SCH ×2 (08:46→21:07)
[2017-12-27] MEDS: CARVEDILOL 6.25 MG TABLET PO SCH ×2 (08:46→21:06)
[2017-12-27] MEDS: BUDESONIDE/FORMOTEROL 160-4.5 INHALER 6 GM INH SCH ×2 (09:02→21:07)
[2017-12-27] MEDS ORDERED: NON-FORMULARY MEDICATION (Albuterol Sulfate [Proair Respiclick] 2 PUFF) INH PRN (16:54)
[2017-12-27] MEDS: CETIRIZINE 10 MG TABLET PO SCH ×2 (17:26→21:07)
[2017-12-27] MEDS: SIMVASTATIN 20 MG TABLET PO SCH (17:26)
[2017-12-27] MEDS: SILDENAFIL 20 MG TABLET PO SCH ×2 (17:27→21:07)
[2017-12-27] MEDS ORDERED: ALBUTEROL SULFATE INH PRN (17:30)
[2017-12-27] MEDS: TOLTERODINE LA 4 MG CAPSULE PO SCH (21:06)
[2017-12-27] MEDS: ENOXAPARIN 30 MG/0.3 ML SYRINGE SUBCUT SCH (21:06)
[2017-12-28] MEDS: ALBUTEROL/IPRATROPIUM 3 ML NEB RESP TX SCH ×4 (00:03→20:22)
[2017-12-28 04:55] LABS: Calcium 9.8 MG/DL (8.5-10.1); Osmolality,Calculated 283.4 MOS/KG (273-304); Potassium 3.9 MMOL/L (3.5-5.1)
[2017-12-28] MEDS: sitaGLIPtin 25 MG TABLET PO SCH (09:21)
[2017-12-28] MEDS: CARVEDILOL 6.25 MG TABLET PO SCH ×2 (09:22→20:41)
[2017-12-28] MEDS: GABAPENTIN 300 MG CAPSULE PO SCH ×3 (09:22→20:41)
[2017-12-28] MEDS: DOCUSATE SODIUM 100 MG CAPSULE PO SCH ×2 (09:22→20:41)
[2017-12-28] MEDS: CETIRIZINE 10 MG TABLET PO SCH ×2 (09:22→20:41)
[2017-12-28] MEDS: SILDENAFIL 20 MG TABLET PO SCH ×3 (09:22→20:43)
[2017-12-28] MEDS: PANTOPRAZOLE 40 MG TABLET PO SCH (09:22)
[2017-12-28] MEDS: ASPIRIN EC 81 MG TABLET PO SCH (09:23)
[2017-12-28] MEDS: FUROSEMIDE 40 MG TABLET PO SCH ×2 (09:23→17:28)
[2017-12-28] MEDS: INSULIN REGULAR 100 UNIT/ML SUBCUT SCH ×4 (09:24→20:44)
[2017-12-28] MEDS: POTASSIUM CHLORIDE 20 MEQ TABLET PO SCH ×2 (09:24→20:41)
[2017-12-28] MEDS: BUDESONIDE/FORMOTEROL 160-4.5 INHALER 6 GM INH SCH ×2 (09:24→20:43)
[2017-12-28] MEDS: VALSARTAN 80 MG TABLET PO SCH (14:58)
[2017-12-28] MEDS: SIMVASTATIN 20 MG TABLET PO SCH (17:28)
[2017-12-28] MEDS: TOLTERODINE LA 4 MG CAPSULE PO SCH (20:41)
[2017-12-28] MEDS: ENOXAPARIN 30 MG/0.3 ML SYRINGE SUBCUT SCH (20:44)
[2017-12-29] MEDS: ALBUTEROL/IPRATROPIUM 3 ML NEB RESP TX SCH ×2 (01:40→07:11)
[2017-12-29 05:56] LABS: Basophils # 0.1 10*3/uL (0.0-0.2); Eosinophils # 0.3 10*3/uL (0.0-0.87); Eosinophils % 6.3 % (0.00-10.9); Hematocrit 37.3 VOL% (35.7-47.0); Hemoglobin 11.6 GM/DL (12.0-16.0); Immature Granulocytes % 0.4 %; Immature Granulocytes Absolute 0.02 #; Lymphocytes % 19.9 % (21.3-54.2); Mean Corpuscular HGB Conc 31.1 GM/DL (32-36); Mean Corpuscular Hemoglobin 28 PG (27-34); Mean Corpuscular Volume 89.7 FL (87-102); Mean Platelet Volume 11.1 FL (9.6-12.0); Monocytes # 0.5 10*3/uL (0.11-0.8); Monocytes % 10.5 % (1.7-12.7); Neutrophils # 3.1 10*3/uL (1.4-7.4); Neutrophils % 61.9 % (38.7-73.9); Platelet Count 155 T/CUMM (130-400); Red Blood Count 4.16 MC/CUMM (3.8-5.5); White Blood Count 5.1 T/CUMM (4-12)
[2017-12-29 06:18] LABS: Calcium 9.3 MG/DL (8.5-10.1); Osmolality,Calculated 289.3 MOS/KG (273-304); Potassium 4.6 MMOL/L (3.5-5.1)
[2017-12-29] MEDS: INSULIN REGULAR 100 UNIT/ML SUBCUT SCH ×2 (07:54→12:02)
[2017-12-29] MEDS: GABAPENTIN 300 MG CAPSULE PO SCH ×2 (09:58→13:21)
[2017-12-29] MEDS: ASPIRIN EC 81 MG TABLET PO SCH (09:58)
[2017-12-29] MEDS: CARVEDILOL 6.25 MG TABLET PO SCH (09:58)
[2017-12-29] MEDS: DOCUSATE SODIUM 100 MG CAPSULE PO SCH (09:58)
[2017-12-29] MEDS: FUROSEMIDE 40 MG TABLET PO SCH (09:58)
[2017-12-29] MEDS: VALSARTAN 80 MG TABLET PO SCH (09:59)
[2017-12-29] MEDS: CETIRIZINE 10 MG TABLET PO SCH (09:59)
[2017-12-29] MEDS: sitaGLIPtin 25 MG TABLET PO SCH (09:59)
[2017-12-29] MEDS: POTASSIUM CHLORIDE 20 MEQ TABLET PO SCH (09:59)
[2017-12-29] MEDS: BUDESONIDE/FORMOTEROL 160-4.5 INHALER 6 GM INH SCH (09:59)
[2017-12-29] MEDS: PANTOPRAZOLE 40 MG TABLET PO SCH (09:59)
[2017-12-29] MEDS: SILDENAFIL 20 MG TABLET PO SCH (10:02)
[2017-12-29 11:36] VITALS: BP 102/57
== END 2017-12-29 13:26 | DRG 291 ==
LOC: N.ED 11:27 → N.EDINP 15:08 → N.2E 16:01 → N.CC 19:43 → N.TELEN 12-27 15:10
PROVIDERS: ADMIT Family Medicine; ATTEND Family Medicine

== ENCOUNTER 2018-02-02 09:07 | Inpatient (IN) ==
[2018-02-02] MEDS ORDERED: FUROSEMIDE 100 MG/10 ML VIAL IV STA (09:49)
[2018-02-02] MEDS ORDERED: ONDANSETRON 4 MG/2 ML VIAL IV STA (09:49)
[2018-02-02] MEDS ORDERED: MORPHINE 4 MG/1 ML VIAL IV STA (09:51)
[2018-02-02 10:50] LABS: Basophils % 0.4 % (0.0-0.8); Eosinophils % 0.3 % (0.00-10.9); Hematocrit 36.5 VOL% (35.7-47.0); Hemoglobin 11.6 GM/DL (12.0-16.0); Immature Granulocytes % 0.4 %; Immature Granulocytes Absolute 0.03 #; Lymphocytes # 0.6 10*3/uL (1.4-4.0); Lymphocytes % 7.7 % (21.3-54.2); Mean Corpuscular HGB Conc 31.8 GM/DL (32-36); Mean Corpuscular Hemoglobin 28 PG (27-34); Mean Corpuscular Volume 87.7 FL (87-102); Mean Platelet Volume 11.6 FL (9.6-12.0); Monocytes # 0.5 10*3/uL (0.11-0.8); Monocytes % 6.4 % (1.7-12.7); Neutrophils # 6.5 10*3/uL (1.4-7.4); Neutrophils % 84.8 % (38.7-73.9); Platelet Count 138 T/CUMM (130-400); Red Blood Count 4.16 MC/CUMM (3.8-5.5); Red Cell Distribution Width 15.6 % (9.3-17.3); White Blood Count 7.7 T/CUMM (4-12)
[2018-02-02 11:13] LABS: Albumin 3.9 G/DL (3.4-5.0); Bilirubin,Total 2.2 MG/DL (0.2-1.0); Calcium 9.8 MG/DL (8.5-10.1); Osmolality,Calculated 279.7 MOS/KG (273-304); Potassium 3.8 MMOL/L (3.5-5.1); Total Protein 7.3 G/DL (6.4-8.3)
[2018-02-02 11:38] LABS: Hypochromasia 1+; Microcytosis 1+; Ovalocytes Slight
[2018-02-02 11:39] LABS: Platelet Estimate Adequate
[2018-02-02 12:06] LABS: Apearance,Urine CLEAR (Clear); Bacteria,Urine Occasional /HPF (Few); Bilirubin,Urine Negative (Negative); Blood, Urine Small mg/dL (Negative); Glucose,Urine (UA) Negative (Negative); Hyaline Casts,Urine 1 /LPF (0-3); Ketones,Urine 5 mg/dL (Negative); Nitrite,Urine Negative (Negative); Protein,Urine 100 MG/DL; RBC,Urine <1 /HPF (0-4); Squamous Epithelial Cell,Urine Occasional /HPF (0-10); Urine Color Yellow (Yellow); Urine Specific Gravity 1.011 (1.001-1.035); Urine Urobilinogen < 2.0 EU/DL (0.2-1.0); WBC,Urine 1 /HPF (0-6)
[2018-02-02] MEDS ORDERED: DEXTROSE 50% 25 GM/50 ML VIAL IV PRN (12:15)
[2018-02-02] MEDS ORDERED: ACETAMINOPHEN 325 MG TABLET PO PRN (12:15)
[2018-02-02] MEDS ORDERED: GLUCAGON 1 MG VIAL IM PRN (12:15)
[2018-02-02] MEDS ORDERED: MORPHINE 4 MG/1 ML VIAL IV PRN (12:15)
[2018-02-02] MEDS ORDERED: ONDANSETRON 4 MG/2 ML VIAL IV PRN (12:15)
[2018-02-02] MEDS ORDERED: traMADol 50 MG TABLET PO PRN (12:24)
[2018-02-02] MEDS ORDERED: LORazepam 1 MG TABLET PO PRN (12:24)
[2018-02-02] MEDS ORDERED: ALBUTEROL 2.5 MG/3 ML NEB RESP TX PRN (12:24)
[2018-02-02] MEDS ORDERED: GABAPENTIN 300 MG CAPSULE PO SCH (14:00)
[2018-02-02] MEDS: FUROSEMIDE 40 MG/4 ML VIAL IV SCH (15:41)
[2018-02-02] MEDS: SILDENAFIL 20 MG TABLET PO SCH ×2 (15:41→21:47)
[2018-02-02] MEDS: INSULIN LISPRO 100 UNIT/ML SUBCUT SCH ×2 (17:09→21:48)
[2018-02-02] MEDS: TOLTERODINE LA 4 MG CAPSULE PO SCH (18:34)
[2018-02-02] MEDS: SIMVASTATIN 20 MG TABLET PO SCH (18:34)
[2018-02-02] MEDS: ALBUTEROL/IPRATROPIUM 3 ML NEB RESP TX SCH (18:50)
[2018-02-02] MEDS: DOCUSATE SODIUM 100 MG CAPSULE PO SCH (21:46)
[2018-02-02] MEDS: diphenhydrAMINE CAP 25 MG CAPSULE PO SCH (21:46)
[2018-02-02] MEDS: CETIRIZINE 10 MG TABLET PO SCH (21:47)
[2018-02-02] MEDS: GABAPENTIN 600 MG TABLET PO SCH (21:47)
[2018-02-02] MEDS: CARVEDILOL 6.25 MG TABLET PO SCH (21:47)
[2018-02-02] MEDS: BUDESONIDE/FORMOTEROL 160-4.5 INHALER 6 GM INH SCH (21:50)
[2018-02-03] MEDS: ALBUTEROL/IPRATROPIUM 3 ML NEB RESP TX SCH ×4 (00:51→19:06)
[2018-02-03 04:06] LABS: Basophils % 0.5 % (0.0-0.8); Eosinophils # 0.1 10*3/uL (0.0-0.87); Eosinophils % 2.3 % (0.00-10.9); Hematocrit 30.8 VOL% (35.7-47.0); Hemoglobin 9.8 GM/DL (12.0-16.0); Immature Granulocytes % 0.3 %; Immature Granulocytes Absolute 0.02 #; Lymphocytes # 0.9 10*3/uL (1.4-4.0); Lymphocytes % 14.8 % (21.3-54.2); Mean Corpuscular HGB Conc 31.8 GM/DL (32-36); Mean Corpuscular Hemoglobin 28 PG (27-34); Mean Corpuscular Volume 86.5 FL (87-102); Mean Platelet Volume 11.7 FL (9.6-12.0); Monocytes # 0.6 10*3/uL (0.11-0.8); Monocytes % 9.3 % (1.7-12.7); Neutrophils # 4.4 10*3/uL (1.4-7.4); Neutrophils % 72.8 % (38.7-73.9); Platelet Count 125 T/CUMM (130-400); Red Blood Count 3.56 MC/CUMM (3.8-5.5); Red Cell Distribution Width 15.7 % (9.3-17.3)
[2018-02-03 04:57] LABS: Calcium 9.3 MG/DL (8.5-10.1); Osmolality,Calculated 281.5 MOS/KG (273-304); Potassium 3.8 MMOL/L (3.5-5.1)
[2018-02-03 04:59] LABS: Calcium 9.4 MG/DL (8.5-10.1); Osmolality,Calculated 283.4 MOS/KG (273-304); Potassium 3.8 MMOL/L (3.5-5.1)
[2018-02-03] MEDS: FUROSEMIDE 40 MG/4 ML VIAL IV SCH ×2 (08:48→15:15)
[2018-02-03] MEDS: IRBESARTAN 150 MG TABLET PO SCH (08:50)
[2018-02-03] MEDS: CETIRIZINE 10 MG TABLET PO SCH ×2 (08:51→21:26)
[2018-02-03] MEDS: DOCUSATE SODIUM 100 MG CAPSULE PO SCH ×2 (08:51→21:25)
[2018-02-03] MEDS: CARVEDILOL 6.25 MG TABLET PO SCH ×2 (08:51→21:29)
[2018-02-03] MEDS: diphenhydrAMINE CAP 25 MG CAPSULE PO SCH ×2 (08:51→21:26)
[2018-02-03] MEDS: SILDENAFIL 20 MG TABLET PO SCH ×3 (08:51→21:24)
[2018-02-03] MEDS: PANTOPRAZOLE 40 MG TABLET PO SCH (08:51)
[2018-02-03] MEDS: INSULIN LISPRO 100 UNIT/ML SUBCUT SCH ×4 (08:54→21:22)
[2018-02-03] MEDS: GABAPENTIN 300 MG CAPSULE PO SCH (08:58)
[2018-02-03] MEDS ORDERED: VALSARTAN 80 MG TABLET PO SCH (09:00)
[2018-02-03] MEDS: ASPIRIN EC 81 MG TABLET PO SCH (09:04)
[2018-02-03] MEDS: sitaGLIPtin 25 MG TABLET PO SCH (09:04)
[2018-02-03] MEDS: BUDESONIDE/FORMOTEROL 160-4.5 INHALER 6 GM INH SCH ×2 (09:38→21:27)
[2018-02-03] MEDS: POTASSIUM CHLORIDE 20 MEQ PACK PO SCH (09:39)
[2018-02-03] MEDS: SPIRONOLACTONE 25 MG TABLET PO SCH (13:44)
[2018-02-03] MEDS: SIMVASTATIN 20 MG TABLET PO SCH (17:48)
[2018-02-03] MEDS: TOLTERODINE LA 4 MG CAPSULE PO SCH (17:48)
[2018-02-03] MEDS: GABAPENTIN 600 MG TABLET PO SCH (21:24)
[2018-02-04] MEDS: ALBUTEROL/IPRATROPIUM 3 ML NEB RESP TX SCH ×4 (01:35→19:34)
[2018-02-04 05:08] LABS: Basophils # 0.1 10*3/uL (0.0-0.2); Basophils % 0.9 % (0.0-0.8); Eosinophils # 0.3 10*3/uL (0.0-0.87); Eosinophils % 5.4 % (0.00-10.9); Hematocrit 30.6 VOL% (35.7-47.0); Hemoglobin 9.7 GM/DL (12.0-16.0); Immature Granulocytes % 0.4 %; Immature Granulocytes Absolute 0.02 #; Lymphocytes # 0.9 10*3/uL (1.4-4.0); Mean Corpuscular HGB Conc 31.7 GM/DL (32-36); Mean Corpuscular Hemoglobin 28 PG (27-34); Mean Corpuscular Volume 87.7 FL (87-102); Mean Platelet Volume 11.2 FL (9.6-12.0); Monocytes # 0.5 10*3/uL (0.11-0.8); Monocytes % 9.4 % (1.7-12.7); Neutrophils # 3.7 10*3/uL (1.4-7.4); Neutrophils % 66.9 % (38.7-73.9); Platelet Count 127 T/CUMM (130-400); Red Blood Count 3.49 MC/CUMM (3.8-5.5); Red Cell Distribution Width 15.7 % (9.3-17.3); White Blood Count 5.5 T/CUMM (4-12)
[2018-02-04 05:29] LABS: Albumin 3.1 G/DL (3.4-5.0); Bilirubin,Direct 0.38 MG/DL (0.0-0.20); Bilirubin,Indirect 0.4 MG/DL (0.0-1.0); Bilirubin,Total 0.8 MG/DL (0.2-1.0); Total Protein 5.9 G/DL (6.4-8.3)
[2018-02-04 05:33] LABS: Calcium 8.6 MG/DL (8.5-10.1); Osmolality,Calculated 282.7 MOS/KG (273-304); Potassium 3.5 MMOL/L (3.5-5.1)
[2018-02-04] MEDS: INSULIN LISPRO 100 UNIT/ML SUBCUT SCH ×4 (08:29→22:31)
[2018-02-04] MEDS: POTASSIUM CHLORIDE 20 MEQ PACK PO SCH (08:31)
[2018-02-04] MEDS: SPIRONOLACTONE 25 MG TABLET PO SCH (08:32)
[2018-02-04] MEDS: diphenhydrAMINE CAP 25 MG CAPSULE PO SCH ×2 (08:32→21:25)
[2018-02-04] MEDS: PANTOPRAZOLE 40 MG TABLET PO SCH (08:32)
[2018-02-04] MEDS: IRBESARTAN 150 MG TABLET PO SCH (08:32)
[2018-02-04] MEDS: GABAPENTIN 300 MG CAPSULE PO SCH (08:34)
[2018-02-04] MEDS: DOCUSATE SODIUM 100 MG CAPSULE PO SCH ×2 (08:34→21:25)
[2018-02-04] MEDS: SILDENAFIL 20 MG TABLET PO SCH ×3 (08:34→21:25)
[2018-02-04] MEDS: ASPIRIN EC 81 MG TABLET PO SCH (08:34)
[2018-02-04] MEDS: CETIRIZINE 10 MG TABLET PO SCH ×2 (08:34→21:24)
[2018-02-04] MEDS: CARVEDILOL 6.25 MG TABLET PO SCH ×2 (08:34→21:25)
[2018-02-04] MEDS: sitaGLIPtin 25 MG TABLET PO SCH (08:35)
[2018-02-04] MEDS: BUDESONIDE/FORMOTEROL 160-4.5 INHALER 6 GM INH SCH ×2 (08:39→21:25)
[2018-02-04] MEDS: FUROSEMIDE 40 MG/4 ML VIAL IV SCH (08:42)
[2018-02-04] MEDS ORDERED: FUROSEMIDE 40 MG TABLET PO SCH (09:00)
[2018-02-04] MEDS: SIMVASTATIN 20 MG TABLET PO SCH (17:28)
[2018-02-04] MEDS: TOLTERODINE LA 4 MG CAPSULE PO SCH (17:29)
[2018-02-04] MEDS: GABAPENTIN 600 MG TABLET PO SCH (21:24)
[2018-02-05] MEDS: ALBUTEROL/IPRATROPIUM 3 ML NEB RESP TX SCH ×3 (01:51→13:32)
[2018-02-05 05:01] LABS: Basophils % 0.9 % (0.0-0.8); Eosinophils # 0.3 10*3/uL (0.0-0.87); Eosinophils % 6.2 % (0.00-10.9); Hematocrit 31.7 VOL% (35.7-47.0); Hemoglobin 9.5 GM/DL (12.0-16.0); Immature Granulocytes % 0.4 %; Immature Granulocytes Absolute 0.02 #; Lymphocytes # 0.8 10*3/uL (1.4-4.0); Mean Corpuscular Hemoglobin 28 PG (27-34); Mean Corpuscular Volume 91.6 FL (87-102); Mean Platelet Volume 11.1 FL (9.6-12.0); Monocytes # 0.4 10*3/uL (0.11-0.8); Monocytes % 9.8 % (1.7-12.7); Neutrophils # 2.9 10*3/uL (1.4-7.4); Neutrophils % 64.7 % (38.7-73.9); Platelet Count 122 T/CUMM (130-400); Red Blood Count 3.46 MC/CUMM (3.8-5.5); Red Cell Distribution Width 15.6 % (9.3-17.3); White Blood Count 4.5 T/CUMM (4-12)
[2018-02-05 05:23] LABS: Calcium 8.6 MG/DL (8.5-10.1); Osmolality,Calculated 286.4 MOS/KG (273-304); Potassium 4.3 MMOL/L (3.5-5.1)
[2018-02-05] MEDS: INSULIN LISPRO 100 UNIT/ML SUBCUT SCH ×3 (07:57→16:16)
[2018-02-05] MEDS ORDERED: FUROSEMIDE 80 MG TABLET PO SCH (09:00)
[2018-02-05] MEDS: PANTOPRAZOLE 40 MG TABLET PO SCH (09:03)
[2018-02-05] MEDS: CETIRIZINE 10 MG TABLET PO SCH (09:03)
[2018-02-05] MEDS: GABAPENTIN 300 MG CAPSULE PO SCH (09:03)
[2018-02-05] MEDS: SPIRONOLACTONE 25 MG TABLET PO SCH (09:03)
[2018-02-05] MEDS: sitaGLIPtin 25 MG TABLET PO SCH (09:03)
[2018-02-05] MEDS: BUDESONIDE/FORMOTEROL 160-4.5 INHALER 6 GM INH SCH (09:04)
[2018-02-05] MEDS: IRBESARTAN 150 MG TABLET PO SCH (09:04)
[2018-02-05] MEDS: POTASSIUM CHLORIDE 20 MEQ PACK PO SCH (09:04)
[2018-02-05] MEDS: diphenhydrAMINE CAP 25 MG CAPSULE PO SCH (09:04)
[2018-02-05] MEDS: DOCUSATE SODIUM 100 MG CAPSULE PO SCH (09:04)
[2018-02-05] MEDS: ASPIRIN EC 81 MG TABLET PO SCH (09:04)
[2018-02-05] MEDS: CARVEDILOL 6.25 MG TABLET PO SCH (09:04)
[2018-02-05] MEDS: SILDENAFIL 20 MG TABLET PO SCH ×2 (09:10→16:23)
[2018-02-05 12:06] VITALS: BP 99/56
== END 2018-02-05 16:28 | disposition home health service (06) | DRG 291 ==
LOC: N.ED 09:07 → N.EDINP 12:15 → N.TELES 12:57
PROVIDERS: ADMIT Family Medicine; ATTEND Family Medicine

== ENCOUNTER 2019-06-01 10:55 | Inpatient (IN) ==
[2019-06-01] MEDS ORDERED: ALBUTEROL 2.5 MG/3 ML NEB RESP TX STA (11:26)
[2019-06-01 11:53] LABS: Basophils % 0.7 % (0.0-0.8); Eosinophils # 0.5 10*3/uL (0.0-0.87); Eosinophils % 9.3 % (0.00-10.9); Hematocrit 38.7 VOL% (35.7-47.0); Hemoglobin 12.2 GM/DL (12.0-16.0); Immature Granulocytes % 0.5 %; Immature Granulocytes Absolute 0.03 #; Lymphocytes # 0.5 10*3/uL (1.4-4.0); Lymphocytes % 8.2 % (21.3-54.2); Mean Corpuscular HGB Conc 31.5 GM/DL (32-36); Mean Corpuscular Volume 89.2 FL (87-102); Mean Platelet Volume 10.3 FL (9.6-12.0); Monocytes % 10.8 % (1.7-12.7); Neutrophils % 70.5 % (38.7-73.9); Platelet Count 107 T/CUMM (130-400); Red Blood Count 4.34 MC/CUMM (3.8-5.5); Red Cell Distribution Width 15.1 % (9.3-17.3); White Blood Count 5.5 T/CUMM (4-12)
[2019-06-01 12:36] LABS: Albumin 3.8 G/DL (3.4-5.0); Bilirubin,Total 0.7 MG/DL (0.2-1.0); Calcium 9.3 MG/DL (8.5-10.1); Osmolality,Calculated 281.8 MOS/KG (273-304); Total Protein 7.4 G/DL (6.4-8.3)
[2019-06-01] MEDS ORDERED: ONDANSETRON 4 MG/2 ML VIAL IV PRN (13:24)
[2019-06-01] MEDS ORDERED: ACETAMINOPHEN 325 MG TABLET PO PRN (13:24)
[2019-06-01] MEDS ORDERED: LORazepam 1 MG TABLET PO PRN (13:27)
[2019-06-01] MEDS ORDERED: traMADol 50 MG TABLET PO PRN (13:27)
[2019-06-01] MEDS: ALBUTEROL/IPRATROPIUM 3 ML NEB RESP TX SCH ×3 (13:54→23:45)
[2019-06-01] MEDS: methylPREDNISolone SOD SUC 40 MG/1 ML VIAL IV SCH ×2 (15:09→20:59)
[2019-06-01] MEDS: SODIUM CHLORIDE 0.45% 1,000 ML IV SCH (15:09)
[2019-06-01] MEDS: cefTRIAXone 1,000 MG in SYRINGE 1 EACH IV SCH (15:10)
[2019-06-01] MEDS: AZITHROMYCIN INJ 500 MG in SODIUM CHLORIDE 0.9% 250 ML IV SCH (16:24)
[2019-06-01] MEDS: SIMVASTATIN 20 MG TABLET PO SCH (18:02)
[2019-06-01] MEDS: SILDENAFIL 20 MG TABLET PO SCH ×2 (18:02→20:59)
[2019-06-01] MEDS: TOLTERODINE LA 4 MG CAPSULE PO SCH (18:02)
[2019-06-01] MEDS: BUDESONIDE/FORMOTEROL 160-4.5 INHALER 6 GM INH SCH (20:56)
[2019-06-01] MEDS: DOCUSATE SODIUM 100 MG CAPSULE PO SCH (20:58)
[2019-06-01] MEDS: GABAPENTIN 600 MG TABLET PO SCH (20:58)
[2019-06-01] MEDS: CETIRIZINE 10 MG TABLET PO SCH (20:58)
[2019-06-01] MEDS: carvediloL 6.25 MG TABLET PO SCH (20:58)
[2019-06-02] MEDS: ALBUTEROL/IPRATROPIUM 3 ML NEB RESP TX SCH ×5 (02:55→20:43)
[2019-06-02] MEDS: methylPREDNISolone SOD SUC 40 MG/1 ML VIAL IV SCH ×3 (05:36→21:29)
[2019-06-02] MEDS: BUDESONIDE/FORMOTEROL 160-4.5 INHALER 6 GM INH SCH ×2 (08:47→21:25)
[2019-06-02] MEDS: POTASSIUM CHLORIDE 20 MEQ PACK PO SCH (08:48)
[2019-06-02] MEDS: GABAPENTIN 300 MG CAPSULE PO SCH (08:48)
[2019-06-02] MEDS: FUROSEMIDE 40 MG TABLET PO SCH (08:49)
[2019-06-02] MEDS: sitaGLIPtin 25 MG TABLET PO SCH (08:49)
[2019-06-02] MEDS: CETIRIZINE 10 MG TABLET PO SCH ×2 (08:49→21:27)
[2019-06-02] MEDS: SPIRONOLACTONE 25 MG TABLET PO SCH (08:49)
[2019-06-02] MEDS: carvediloL 6.25 MG TABLET PO SCH ×2 (08:49→21:26)
[2019-06-02] MEDS: PANTOPRAZOLE 40 MG TABLET PO SCH (08:49)
[2019-06-02] MEDS: DOCUSATE SODIUM 100 MG CAPSULE PO SCH ×2 (08:50→21:27)
[2019-06-02] MEDS: VALSARTAN 80 MG TABLET PO SCH (08:55)
[2019-06-02] MEDS: SILDENAFIL 20 MG TABLET PO SCH ×3 (08:55→21:26)
[2019-06-02] MEDS: ASPIRIN EC 81 MG TABLET PO SCH (08:55)
[2019-06-02] MEDS: SODIUM CHLORIDE 0.45% 1,000 ML IV SCH (12:35)
[2019-06-02] MEDS: cefTRIAXone 1,000 MG in SYRINGE 1 EACH IV SCH (14:56)
[2019-06-02] MEDS: AZITHROMYCIN INJ 500 MG in SODIUM CHLORIDE 0.9% 250 ML IV SCH (14:57)
[2019-06-02] MEDS: SIMVASTATIN 20 MG TABLET PO SCH (17:56)
[2019-06-02] MEDS: TOLTERODINE LA 4 MG CAPSULE PO SCH (17:56)
[2019-06-02] MEDS: GABAPENTIN 600 MG TABLET PO SCH (21:29)
[2019-06-03] MEDS: ALBUTEROL/IPRATROPIUM 3 ML NEB RESP TX SCH ×6 (00:31→23:31)
[2019-06-03] MEDS: methylPREDNISolone SOD SUC 40 MG/1 ML VIAL IV SCH ×3 (05:11→22:35)
[2019-06-03] MEDS: ASPIRIN EC 81 MG TABLET PO SCH (08:39)
[2019-06-03] MEDS: BUDESONIDE/FORMOTEROL 160-4.5 INHALER 6 GM INH SCH ×2 (08:39→20:38)
[2019-06-03] MEDS: GABAPENTIN 300 MG CAPSULE PO SCH (08:39)
[2019-06-03] MEDS: CETIRIZINE 10 MG TABLET PO SCH ×2 (08:39→20:38)
[2019-06-03] MEDS: POTASSIUM CHLORIDE 20 MEQ PACK PO SCH (08:39)
[2019-06-03] MEDS: sitaGLIPtin 25 MG TABLET PO SCH (08:40)
[2019-06-03] MEDS: SPIRONOLACTONE 25 MG TABLET PO SCH (08:40)
[2019-06-03] MEDS: PANTOPRAZOLE 40 MG TABLET PO SCH (08:40)
[2019-06-03] MEDS: DOCUSATE SODIUM 100 MG CAPSULE PO SCH ×2 (08:41→20:38)
[2019-06-03] MEDS: SILDENAFIL 20 MG TABLET PO SCH ×3 (08:41→20:37)
[2019-06-03] MEDS: VALSARTAN 80 MG TABLET PO SCH (08:41)
[2019-06-03] MEDS: AZITHROMYCIN INJ 500 MG in SODIUM CHLORIDE 0.9% 250 ML IV SCH (08:42)
[2019-06-03] MEDS: cefTRIAXone 1,000 MG in SYRINGE 1 EACH IV SCH (08:42)
[2019-06-03] MEDS ORDERED: FUROSEMIDE 40 MG/4 ML VIAL ONE (09:34)
[2019-06-03] MEDS ORDERED: ALBUTEROL 2.5 MG/3 ML NEB RESP TX ONE (10:00)
[2019-06-03] MEDS ORDERED: FUROSEMIDE 40 MG/4 ML VIAL IV ONE ×2 (10:00→14:00)
[2019-06-03] MEDS: carvediloL 6.25 MG TABLET PO SCH ×2 (10:21→20:38)
[2019-06-03] MEDS: FUROSEMIDE 40 MG TABLET PO SCH (10:42)
[2019-06-03 11:29] LABS: Basophils % 0.1 % (0.0-0.8); Hematocrit 36.5 VOL% (35.7-47.0); Hemoglobin 11.1 GM/DL (12.0-16.0); Immature Granulocytes % 0.9 %; Immature Granulocytes Absolute 0.07 #; Lymphocytes # 0.3 10*3/uL (1.4-4.0); Lymphocytes % 3.8 % (21.3-54.2); Mean Corpuscular HGB Conc 30.4 GM/DL (32-36); Mean Corpuscular Volume 93.4 FL (87-102); Mean Platelet Volume 11.2 FL (9.6-12.0); Monocytes % 3.2 % (1.7-12.7); Red Blood Count 3.91 MC/CUMM (3.8-5.5); Red Cell Distribution Width 15.7 % (9.3-17.3)
[2019-06-03 11:33] LABS: Platelet Count 93 T/CUMM (130-400); White Blood Count 7.6 T/CUMM (4-12)
[2019-06-03 11:57] LABS: Band Neutrophils 8 % (0-10); Calcium 8.6 MG/DL (8.5-10.1); Lymphocytes 1 % (20-55); Osmolality,Calculated 287.1 MOS/KG (273-304); Segmented Neutrophils 88 % (50-85); Total Cells Counted 100
[2019-06-03 11:58] LABS: Hypochromasia 1+; Microcytosis Slight; Ovalocytes Slight
[2019-06-03 11:59] LABS: Platelet Estimate Decreased
[2019-06-03] MEDS: SIMVASTATIN 20 MG TABLET PO SCH (17:39)
[2019-06-03] MEDS: TOLTERODINE LA 4 MG CAPSULE PO SCH (17:39)
[2019-06-03] MEDS: GABAPENTIN 600 MG TABLET PO SCH (20:37)
[2019-06-03] MEDS: FUROSEMIDE 40 MG/4 ML VIAL IV SCH (20:38)
[2019-06-04] MEDS: ALBUTEROL/IPRATROPIUM 3 ML NEB RESP TX SCH ×5 (04:15→19:56)
[2019-06-04] MEDS: methylPREDNISolone SOD SUC 40 MG/1 ML VIAL IV SCH ×3 (05:48→20:58)
[2019-06-04 06:06] LABS: Basophils % 0.1 % (0.0-0.8); Hematocrit 37.1 VOL% (35.7-47.0); Hemoglobin 11.6 GM/DL (12.0-16.0); Immature Granulocytes % 0.7 %; Immature Granulocytes Absolute 0.06 #; Lymphocytes # 0.4 10*3/uL (1.4-4.0); Lymphocytes % 4.8 % (21.3-54.2); Mean Corpuscular HGB Conc 31.3 GM/DL (32-36); Mean Corpuscular Volume 89.8 FL (87-102); Mean Platelet Volume 11.5 FL (9.6-12.0); Monocytes % 5.5 % (1.7-12.7); Neutrophils % 88.9 % (38.7-73.9); Platelet Count 114 T/CUMM (130-400); Red Blood Count 4.13 MC/CUMM (3.8-5.5); Red Cell Distribution Width 15.9 % (9.3-17.3)
[2019-06-04 06:40] LABS: Anisocytosis 1+; Band Neutrophils 3 % (0-10); Lymphocytes 4 % (20-55); Platelet Estimate Adequate; Segmented Neutrophils 91 % (50-85); Total Cells Counted 100
[2019-06-04 07:11] LABS: Calcium 8.8 MG/DL (8.5-10.1); Osmolality,Calculated 285.2 MOS/KG (273-304)
[2019-06-04] MEDS: CETIRIZINE 10 MG TABLET PO SCH ×2 (09:04→20:58)
[2019-06-04] MEDS: SILDENAFIL 20 MG TABLET PO SCH ×3 (09:04→20:58)
[2019-06-04] MEDS: ASPIRIN EC 81 MG TABLET PO SCH (09:04)
[2019-06-04] MEDS: sitaGLIPtin 25 MG TABLET PO SCH (09:04)
[2019-06-04] MEDS: GABAPENTIN 300 MG CAPSULE PO SCH (09:04)
[2019-06-04] MEDS: DOCUSATE SODIUM 100 MG CAPSULE PO SCH ×2 (09:05→20:58)
[2019-06-04] MEDS: SPIRONOLACTONE 25 MG TABLET PO SCH (09:05)
[2019-06-04] MEDS: VALSARTAN 80 MG TABLET PO SCH (09:05)
[2019-06-04] MEDS: POTASSIUM CHLORIDE 20 MEQ PACK PO SCH (09:05)
[2019-06-04] MEDS: BUDESONIDE/FORMOTEROL 160-4.5 INHALER 6 GM INH SCH ×2 (09:05→20:58)
[2019-06-04] MEDS: PANTOPRAZOLE 40 MG TABLET PO SCH (09:05)
[2019-06-04] MEDS: cefTRIAXone 1,000 MG in SYRINGE 1 EACH IV SCH (09:06)
[2019-06-04] MEDS: FUROSEMIDE 40 MG/4 ML VIAL IV SCH ×2 (09:06→15:36)
[2019-06-04] MEDS: AZITHROMYCIN INJ 500 MG in SODIUM CHLORIDE 0.9% 250 ML IV SCH (09:07)
[2019-06-04] MEDS: carvediloL 6.25 MG TABLET PO SCH ×2 (09:10→20:58)
[2019-06-04] MEDS: TOLTERODINE LA 4 MG CAPSULE PO SCH (17:24)
[2019-06-04] MEDS: SIMVASTATIN 20 MG TABLET PO SCH (17:24)
[2019-06-04] MEDS: GABAPENTIN 600 MG TABLET PO SCH (20:58)
[2019-06-05 05:11] LABS: Calcium 8.8 MG/DL (8.5-10.1); Osmolality,Calculated 293.8 MOS/KG (273-304)
[2019-06-05] MEDS: methylPREDNISolone SOD SUC 40 MG/1 ML VIAL IV SCH ×3 (05:20→20:59)
[2019-06-05] MEDS: ALBUTEROL/IPRATROPIUM 3 ML NEB RESP TX SCH ×7 (07:26→23:51)
[2019-06-05] MEDS: FUROSEMIDE 40 MG/4 ML VIAL IV SCH ×2 (08:36→15:23)
[2019-06-05] MEDS: CETIRIZINE 10 MG TABLET PO SCH ×2 (08:41→21:30)
[2019-06-05] MEDS: DOCUSATE SODIUM 100 MG CAPSULE PO SCH ×2 (08:41→21:30)
[2019-06-05] MEDS: GABAPENTIN 300 MG CAPSULE PO SCH (08:42)
[2019-06-05] MEDS: POTASSIUM CHLORIDE 20 MEQ PACK PO SCH (08:42)
[2019-06-05] MEDS: carvediloL 6.25 MG TABLET PO SCH ×2 (08:42→21:30)
[2019-06-05] MEDS: sitaGLIPtin 25 MG TABLET PO SCH (08:42)
[2019-06-05] MEDS: ASPIRIN EC 81 MG TABLET PO SCH (08:42)
[2019-06-05] MEDS: SPIRONOLACTONE 25 MG TABLET PO SCH (08:42)
[2019-06-05] MEDS: PANTOPRAZOLE 40 MG TABLET PO SCH (08:42)
[2019-06-05] MEDS: SILDENAFIL 20 MG TABLET PO SCH ×3 (08:47→21:30)
[2019-06-05] MEDS: BUDESONIDE/FORMOTEROL 160-4.5 INHALER 6 GM INH SCH ×2 (08:47→21:33)
[2019-06-05] MEDS: cefTRIAXone 1,000 MG in SYRINGE 1 EACH IV SCH (08:54)
[2019-06-05] MEDS: AZITHROMYCIN INJ 500 MG in SODIUM CHLORIDE 0.9% 250 ML IV SCH (09:00)
[2019-06-05] MEDS: VALSARTAN 80 MG TABLET PO SCH (16:06)
[2019-06-05] MEDS: TOLTERODINE LA 4 MG CAPSULE PO SCH (17:31)
[2019-06-05] MEDS: SIMVASTATIN 20 MG TABLET PO SCH (17:31)
[2019-06-05] MEDS: GABAPENTIN 600 MG TABLET PO SCH (21:32)
[2019-06-06] MEDS: ALBUTEROL/IPRATROPIUM 3 ML NEB RESP TX SCH ×6 (03:09→23:45)
[2019-06-06] MEDS: methylPREDNISolone SOD SUC 40 MG/1 ML VIAL IV SCH ×3 (06:05→20:16)
[2019-06-06] MEDS: PANTOPRAZOLE 40 MG TABLET PO SCH (09:36)
[2019-06-06] MEDS: POTASSIUM CHLORIDE 20 MEQ PACK PO SCH (09:36)
[2019-06-06] MEDS: sitaGLIPtin 25 MG TABLET PO SCH (09:38)
[2019-06-06] MEDS: carvediloL 6.25 MG TABLET PO SCH ×2 (09:38→21:02)
[2019-06-06] MEDS: SPIRONOLACTONE 25 MG TABLET PO SCH (09:38)
[2019-06-06] MEDS: ASPIRIN EC 81 MG TABLET PO SCH (09:38)
[2019-06-06] MEDS: CETIRIZINE 10 MG TABLET PO SCH ×2 (09:38→21:02)
[2019-06-06] MEDS: DOCUSATE SODIUM 100 MG CAPSULE PO SCH ×2 (09:38→21:02)
[2019-06-06] MEDS: AZITHROMYCIN INJ 500 MG in SODIUM CHLORIDE 0.9% 250 ML IV SCH (09:39)
[2019-06-06] MEDS: VALSARTAN 80 MG TABLET PO SCH (09:39)
[2019-06-06] MEDS: GABAPENTIN 300 MG CAPSULE PO SCH (09:39)
[2019-06-06] MEDS: SILDENAFIL 20 MG TABLET PO SCH ×3 (09:39→21:03)
[2019-06-06] MEDS: cefTRIAXone 1,000 MG in SYRINGE 1 EACH IV SCH (09:42)
[2019-06-06] MEDS: BUDESONIDE/FORMOTEROL 160-4.5 INHALER 6 GM INH SCH ×2 (09:46→21:02)
[2019-06-06] MEDS ORDERED: FUROSEMIDE 20 MG/2 ML VIAL ONE (09:53)
[2019-06-06] MEDS: FUROSEMIDE 40 MG/4 ML VIAL IV SCH ×2 (09:58→15:37)
[2019-06-06] MEDS: TOLTERODINE LA 4 MG CAPSULE PO SCH (17:55)
[2019-06-06] MEDS: SIMVASTATIN 20 MG TABLET PO SCH (17:55)
[2019-06-06] MEDS: GABAPENTIN 600 MG TABLET PO SCH (21:02)
[2019-06-07] MEDS: ALBUTEROL/IPRATROPIUM 3 ML NEB RESP TX SCH ×6 (03:40→22:45)
[2019-06-07] MEDS: methylPREDNISolone SOD SUC 40 MG/1 ML VIAL IV SCH ×3 (04:50→22:40)
[2019-06-07 05:46] LABS: Calcium 9.1 MG/DL (8.5-10.1); Osmolality,Calculated 293.4 MOS/KG (273-304)
[2019-06-07] MEDS: FUROSEMIDE 40 MG/4 ML VIAL IV SCH ×2 (09:05→17:44)
[2019-06-07] MEDS: POTASSIUM CHLORIDE 20 MEQ PACK PO SCH (09:06)
[2019-06-07] MEDS: ASPIRIN EC 81 MG TABLET PO SCH (09:06)
[2019-06-07] MEDS: VALSARTAN 80 MG TABLET PO SCH (09:06)
[2019-06-07] MEDS: GABAPENTIN 300 MG CAPSULE PO SCH (09:06)
[2019-06-07] MEDS: sitaGLIPtin 25 MG TABLET PO SCH (09:07)
[2019-06-07] MEDS: SILDENAFIL 20 MG TABLET PO SCH ×3 (09:07→22:56)
[2019-06-07] MEDS: predniSONE 20 MG TABLET PO SCH (09:07)
[2019-06-07] MEDS: PANTOPRAZOLE 40 MG TABLET PO SCH (09:07)
[2019-06-07] MEDS: CETIRIZINE 10 MG TABLET PO SCH ×2 (09:07→22:55)
[2019-06-07] MEDS: SPIRONOLACTONE 25 MG TABLET PO SCH (09:08)
[2019-06-07] MEDS: DOCUSATE SODIUM 100 MG CAPSULE PO SCH ×2 (09:08→22:54)
[2019-06-07] MEDS: BUDESONIDE/FORMOTEROL 160-4.5 INHALER 6 GM INH SCH ×2 (09:08→22:57)
[2019-06-07] MEDS: carvediloL 6.25 MG TABLET PO SCH ×2 (09:08→22:55)
[2019-06-07] MEDS: cefTRIAXone 1,000 MG in SYRINGE 1 EACH IV SCH (09:16)
[2019-06-07] MEDS: TOLTERODINE LA 4 MG CAPSULE PO SCH (17:44)
[2019-06-07] MEDS: SIMVASTATIN 20 MG TABLET PO SCH (17:44)
[2019-06-07] MEDS: GABAPENTIN 600 MG TABLET PO SCH (22:55)
[2019-06-08] MEDS: ALBUTEROL/IPRATROPIUM 3 ML NEB RESP TX SCH ×6 (02:30→23:31)
[2019-06-08] MEDS: methylPREDNISolone SOD SUC 40 MG/1 ML VIAL IV SCH ×3 (04:46→22:22)
[2019-06-08 06:02] LABS: Osmolality,Calculated 296.4 MOS/KG (273-304)
[2019-06-08] MEDS ORDERED: FUROSEMIDE 100 MG/10 ML VIAL ONE (08:13)
[2019-06-08] MEDS: predniSONE 20 MG TABLET PO SCH (08:28)
[2019-06-08] MEDS: cefTRIAXone 1,000 MG in SYRINGE 1 EACH IV SCH (08:28)
[2019-06-08] MEDS: VALSARTAN 80 MG TABLET PO SCH (08:29)
[2019-06-08] MEDS: CETIRIZINE 10 MG TABLET PO SCH ×2 (08:29→22:25)
[2019-06-08] MEDS: GABAPENTIN 300 MG CAPSULE PO SCH (08:29)
[2019-06-08] MEDS: sitaGLIPtin 25 MG TABLET PO SCH (08:29)
[2019-06-08] MEDS: PANTOPRAZOLE 40 MG TABLET PO SCH (08:29)
[2019-06-08] MEDS: POTASSIUM CHLORIDE 20 MEQ PACK PO SCH (08:29)
[2019-06-08] MEDS: carvediloL 6.25 MG TABLET PO SCH ×2 (08:30→22:25)
[2019-06-08] MEDS: DOCUSATE SODIUM 100 MG CAPSULE PO SCH ×2 (08:30→22:25)
[2019-06-08] MEDS: FUROSEMIDE 40 MG/4 ML VIAL IV SCH ×2 (08:30→15:33)
[2019-06-08] MEDS: SILDENAFIL 20 MG TABLET PO SCH ×3 (08:30→22:26)
[2019-06-08] MEDS: SPIRONOLACTONE 25 MG TABLET PO SCH (08:30)
[2019-06-08] MEDS: ASPIRIN EC 81 MG TABLET PO SCH (08:30)
[2019-06-08] MEDS: BUDESONIDE/FORMOTEROL 160-4.5 INHALER 6 GM INH SCH ×2 (08:32→22:31)
[2019-06-08] MEDS: TOLTERODINE LA 4 MG CAPSULE PO SCH (17:44)
[2019-06-08] MEDS: SIMVASTATIN 20 MG TABLET PO SCH (17:44)
[2019-06-08] MEDS: GABAPENTIN 600 MG TABLET PO SCH (22:25)
[2019-06-09] MEDS: ALBUTEROL/IPRATROPIUM 3 ML NEB RESP TX SCH ×6 (03:28→22:45)
[2019-06-09 05:15] LABS: Basophils % 0.1 % (0.0-0.8); Hematocrit 36.1 VOL% (35.7-47.0); Immature Granulocytes % 1.4 %; Immature Granulocytes Absolute 0.11 #; Lymphocytes # 0.3 10*3/uL (1.4-4.0); Lymphocytes % 3.9 % (21.3-54.2); Mean Corpuscular HGB Conc 33.2 GM/DL (32-36); Mean Corpuscular Volume 84.9 FL (87-102); Mean Platelet Volume 11.6 FL (9.6-12.0); Monocytes % 4.4 % (1.7-12.7); Neutrophils % 90.2 % (38.7-73.9); Platelet Count 122 T/CUMM (130-400); Red Blood Count 4.25 MC/CUMM (3.8-5.5); Red Cell Distribution Width 14.6 % (9.3-17.3); White Blood Count 8.1 T/CUMM (4-12)
[2019-06-09 05:33] LABS: Calcium 8.8 MG/DL (8.5-10.1); Osmolality,Calculated 297.2 MOS/KG (273-304)
[2019-06-09] MEDS: methylPREDNISolone SOD SUC 40 MG/1 ML VIAL IV SCH ×3 (05:43→22:18)
[2019-06-09 06:07] LABS: Lymphocytes 4 % (20-55); Segmented Neutrophils 94 % (50-85); Total Cells Counted 100
[2019-06-09 06:08] LABS: Platelet Estimate Decreased; Polychromasia Few
[2019-06-09] MEDS: GABAPENTIN 300 MG CAPSULE PO SCH (08:51)
[2019-06-09] MEDS: POTASSIUM CHLORIDE 20 MEQ PACK PO SCH (08:51)
[2019-06-09] MEDS: sitaGLIPtin 25 MG TABLET PO SCH (08:51)
[2019-06-09] MEDS: VALSARTAN 80 MG TABLET PO SCH (08:51)
[2019-06-09] MEDS: FUROSEMIDE 40 MG/4 ML VIAL IV SCH ×2 (08:51→17:00)
[2019-06-09] MEDS: SPIRONOLACTONE 25 MG TABLET PO SCH (08:52)
[2019-06-09] MEDS: CETIRIZINE 10 MG TABLET PO SCH ×2 (08:52→22:22)
[2019-06-09] MEDS: predniSONE 20 MG TABLET PO SCH (08:52)
[2019-06-09] MEDS: ASPIRIN EC 81 MG TABLET PO SCH (08:52)
[2019-06-09] MEDS: BUDESONIDE/FORMOTEROL 160-4.5 INHALER 6 GM INH SCH ×2 (08:52→22:24)
[2019-06-09] MEDS: PANTOPRAZOLE 40 MG TABLET PO SCH (08:52)
[2019-06-09] MEDS: carvediloL 6.25 MG TABLET PO SCH ×2 (08:52→22:23)
[2019-06-09] MEDS: DOCUSATE SODIUM 100 MG CAPSULE PO SCH ×2 (08:52→22:21)
[2019-06-09] MEDS: SILDENAFIL 20 MG TABLET PO SCH ×3 (08:52→22:23)
[2019-06-09] MEDS: cefTRIAXone 1,000 MG in SYRINGE 1 EACH IV SCH (08:57)
[2019-06-09] MEDS: TOLTERODINE LA 4 MG CAPSULE PO SCH (17:01)
[2019-06-09] MEDS: SIMVASTATIN 20 MG TABLET PO SCH (17:01)
[2019-06-09] MEDS: GABAPENTIN 600 MG TABLET PO SCH (22:22)
[2019-06-10] MEDS: ALBUTEROL/IPRATROPIUM 3 ML NEB RESP TX SCH ×6 (02:40→23:00)
[2019-06-10] MEDS: methylPREDNISolone SOD SUC 40 MG/1 ML VIAL IV SCH ×3 (05:41→21:18)
[2019-06-10] MEDS: predniSONE 20 MG TABLET PO SCH (09:16)
[2019-06-10] MEDS: carvediloL 6.25 MG TABLET PO SCH ×2 (09:16→21:17)
[2019-06-10] MEDS: DOCUSATE SODIUM 100 MG CAPSULE PO SCH ×2 (09:16→21:17)
[2019-06-10] MEDS: GABAPENTIN 300 MG CAPSULE PO SCH (09:16)
[2019-06-10] MEDS: VALSARTAN 80 MG TABLET PO SCH (09:17)
[2019-06-10] MEDS: SILDENAFIL 20 MG TABLET PO SCH ×3 (09:17→21:17)
[2019-06-10] MEDS: PANTOPRAZOLE 40 MG TABLET PO SCH (09:17)
[2019-06-10] MEDS: ASPIRIN EC 81 MG TABLET PO SCH (09:17)
[2019-06-10] MEDS: CETIRIZINE 10 MG TABLET PO SCH ×2 (09:17→21:17)
[2019-06-10] MEDS: sitaGLIPtin 25 MG TABLET PO SCH (09:17)
[2019-06-10] MEDS: SPIRONOLACTONE 25 MG TABLET PO SCH (09:17)
[2019-06-10] MEDS: POTASSIUM CHLORIDE 20 MEQ PACK PO SCH (09:18)
[2019-06-10] MEDS: FUROSEMIDE 40 MG/4 ML VIAL IV SCH ×2 (09:21→15:02)
[2019-06-10] MEDS: cefTRIAXone 1,000 MG in SYRINGE 1 EACH IV SCH (09:24)
[2019-06-10] MEDS: BUDESONIDE/FORMOTEROL 160-4.5 INHALER 6 GM INH SCH ×2 (09:38→21:18)
[2019-06-10] MEDS: SIMVASTATIN 20 MG TABLET PO SCH (17:38)
[2019-06-10] MEDS: TOLTERODINE LA 4 MG CAPSULE PO SCH (17:38)
[2019-06-10] MEDS: GABAPENTIN 600 MG TABLET PO SCH (21:17)
[2019-06-11] MEDS: ALBUTEROL/IPRATROPIUM 3 ML NEB RESP TX SCH ×3 (03:00→11:28)
[2019-06-11 05:58] LABS: Basophils % 0.1 % (0.0-0.8); Hematocrit 39.1 VOL% (35.7-47.0); Hemoglobin 12.8 GM/DL (12.0-16.0); Immature Granulocytes % 1.4 %; Immature Granulocytes Absolute 0.15 #; Lymphocytes # 0.4 10*3/uL (1.4-4.0); Lymphocytes % 3.7 % (21.3-54.2); Mean Corpuscular HGB Conc 32.7 GM/DL (32-36); Mean Platelet Volume 10.8 FL (9.6-12.0); Neutrophils % 90.8 % (38.7-73.9); Platelet Count 135 T/CUMM (130-400); Red Cell Distribution Width 14.4 % (9.3-17.3); White Blood Count 10.4 T/CUMM (4-12)
[2019-06-11] MEDS: methylPREDNISolone SOD SUC 40 MG/1 ML VIAL IV SCH ×2 (06:00→12:47)
[2019-06-11 06:17] LABS: Band Neutrophils 2 % (0-10); Hypochromasia 1+; Lymphocytes 9 % (20-55); Segmented Neutrophils 87 % (50-85); Total Cells Counted 100
[2019-06-11 06:18] LABS: Calcium 9.1 MG/DL (8.5-10.1); Osmolality,Calculated 290.7 MOS/KG (273-304); Platelet Estimate Normal
[2019-06-11] MEDS ORDERED: FUROSEMIDE 80 MG TABLET PO SCH (09:00)
[2019-06-11] MEDS: CETIRIZINE 10 MG TABLET PO SCH (09:30)
[2019-06-11] MEDS: ASPIRIN EC 81 MG TABLET PO SCH (09:30)
[2019-06-11] MEDS: POTASSIUM CHLORIDE 20 MEQ PACK PO SCH (09:30)
[2019-06-11] MEDS: SPIRONOLACTONE 25 MG TABLET PO SCH (09:30)
[2019-06-11] MEDS: predniSONE 20 MG TABLET PO SCH (09:31)
[2019-06-11] MEDS: PANTOPRAZOLE 40 MG TABLET PO SCH (09:31)
[2019-06-11] MEDS: sitaGLIPtin 25 MG TABLET PO SCH (09:31)
[2019-06-11] MEDS: carvediloL 6.25 MG TABLET PO SCH (09:31)
[2019-06-11] MEDS: DOCUSATE SODIUM 100 MG CAPSULE PO SCH (09:32)
[2019-06-11] MEDS: VALSARTAN 80 MG TABLET PO SCH (09:34)
[2019-06-11] MEDS: SILDENAFIL 20 MG TABLET PO SCH (09:34)
[2019-06-11] MEDS: cefTRIAXone 1,000 MG in SYRINGE 1 EACH IV SCH (09:37)
[2019-06-11] MEDS: BUDESONIDE/FORMOTEROL 160-4.5 INHALER 6 GM INH SCH (09:39)
[2019-06-11] MEDS: FUROSEMIDE 40 MG/4 ML VIAL IV SCH (10:27)
[2019-06-11 12:05] VITALS: BP 101/50
[2019-06-11] MEDS ORDERED: TUBERCULIN SKIN TEST 0.1 ML SYRINGE INTRADERM ONE (13:42)
[2019-06-11] MEDS ORDERED: GABAPENTIN 300 MG CAPSULE PO SCH (21:00)
== END 2019-06-11 15:03 | DRG 202 ==
LOC: N.ED 10:55 → N.EDINP 13:24 → N.2E 14:36
PROVIDERS: ADMIT Family Medicine; ATTEND Family Medicine

== ENCOUNTER 2020-05-23 00:28 | Inpatient (IN) ==
[2020-05-23 01:40] LABS: Basophils % 0.5 % (0.0-0.8); Eosinophils # 0.2 10*3/uL (0.0-0.87); Eosinophils % 3.9 % (0.00-10.9); Hemoglobin 10.7 GM/DL (12.0-16.0); Immature Granulocytes % 0.7 %; Immature Granulocytes Absolute 0.04 #; Lymphocytes # 0.7 10*3/uL (1.4-4.0); Lymphocytes % 11.3 % (21.3-54.2); Mean Corpuscular HGB Conc 31.5 GM/DL (32-36); Mean Corpuscular Volume 90.2 FL (87-102); Mean Platelet Volume 10.8 FL (9.6-12.0); Monocytes % 8.1 % (1.7-12.7); Neutrophils % 75.5 % (38.7-73.9); Platelet Count 102 T/CUMM (130-400); Red Blood Count 3.77 MC/CUMM (3.8-5.5); Red Cell Distribution Width 15.4 % (9.3-17.3); White Blood Count 5.9 T/CUMM (4-12)
[2020-05-23 01:52] LABS: Albumin 3.6 G/DL (3.4-5.0); Calcium 9.4 MG/DL (8.5-10.1); Osmolality,Calculated 276.8 MOS/KG (273-304); Total Protein 6.8 G/DL (6.4-8.3)
[2020-05-23] MEDS ORDERED: POTASSIUM CHLORIDE 20 MEQ/15 ML UDCUP PO ONE (01:59)
[2020-05-23] MEDS ORDERED: FUROSEMIDE 40 MG/4 ML VIAL IV STA (01:59)
[2020-05-23] MEDS ORDERED: ACETAMINOPHEN 325 MG TABLET PO PRN (02:49)
[2020-05-23] MEDS ORDERED: ONDANSETRON 4 MG/2 ML VIAL IV PRN (02:49)
[2020-05-23 06:25] LABS: Basophils # 0.1 10*3/uL (0.0-0.2); Basophils % 0.8 % (0.0-0.8); Eosinophils # 0.3 10*3/uL (0.0-0.87); Eosinophils % 5.1 % (0.00-10.9); Hematocrit 35.3 VOL% (35.7-47.0); Hemoglobin 11.2 GM/DL (12.0-16.0); Immature Granulocytes % 0.7 %; Immature Granulocytes Absolute 0.04 #; Lymphocytes # 0.7 10*3/uL (1.4-4.0); Lymphocytes % 12.6 % (21.3-54.2); Mean Corpuscular HGB Conc 31.7 GM/DL (32-36); Mean Corpuscular Volume 90.1 FL (87-102); Mean Platelet Volume 10.9 FL (9.6-12.0); Monocytes % 8.1 % (1.7-12.7); Neutrophils % 72.7 % (38.7-73.9); Platelet Count 102 T/CUMM (130-400); Red Blood Count 3.92 MC/CUMM (3.8-5.5); Red Cell Distribution Width 15.5 % (9.3-17.3); White Blood Count 5.9 T/CUMM (4-12)
[2020-05-23 06:55] LABS: Albumin 3.6 G/DL (3.4-5.0); Bilirubin,Total 1.5 MG/DL (0.2-1.0); Calcium 9.7 MG/DL (8.5-10.1); Osmolality,Calculated 284.3 MOS/KG (273-304); Total Protein 6.6 G/DL (6.4-8.3)
[2020-05-23] MEDS: FUROSEMIDE 40 MG/4 ML VIAL IV SCH ×2 (09:02→20:19)
[2020-05-23] MEDS: PANTOPRAZOLE 40 MG TABLET PO SCH (09:02)
[2020-05-23] MEDS ORDERED: DEXTROSE 50% 25 GM/50 ML VIAL IV PRN (10:50)
[2020-05-23] MEDS ORDERED: GLUCAGON 1 MG VIAL IM PRN (10:50)
[2020-05-23] MEDS: ALBUTEROL/IPRATROPIUM 3 ML NEB RESP TX SCH ×3 (10:58→19:06)
[2020-05-23] MEDS ORDERED: methylPREDNISolone SOD SUC 40 MG/1 ML VIAL IV SCH (11:00)
[2020-05-23] MEDS: SODIUM CHLORIDE 0.9% 1,000 ML IV SCH (13:04)
[2020-05-23] MEDS: INSULIN REGULAR 100 UNIT/ML SUBCUT SCH ×3 (13:11→20:26)
[2020-05-23] MEDS: methylPREDNISolone SOD SUC 40 MG/1 ML VIAL IV SCH ×2 (13:26→18:38)
[2020-05-23] MEDS: cefTRIAXone 500 MG in SYRINGE 1 EACH IV SCH (13:26)
[2020-05-24] MEDS: GABAPENTIN 300 MG CAPSULE PO SCH ×2 (00:06→20:12)
[2020-05-24] MEDS: ALBUTEROL/IPRATROPIUM 3 ML NEB RESP TX SCH ×4 (01:42→20:02)
[2020-05-24] MEDS: methylPREDNISolone SOD SUC 40 MG/1 ML VIAL IV SCH ×3 (02:51→20:13)
[2020-05-24] MEDS: SODIUM CHLORIDE 0.9% 1,000 ML IV SCH (02:51)
[2020-05-24 06:15] LABS: Osmolality,Calculated 282.5 MOS/KG (273-304)
[2020-05-24] MEDS: INSULIN REGULAR 100 UNIT/ML SUBCUT SCH ×4 (10:05→20:14)
[2020-05-24] MEDS: ASPIRIN EC 81 MG TABLET PO SCH (10:06)
[2020-05-24] MEDS: SPIRONOLACTONE 25 MG TABLET PO SCH (10:06)
[2020-05-24] MEDS: sitaGLIPtin 25 MG TABLET PO SCH (10:06)
[2020-05-24] MEDS: SILDENAFIL 20 MG TABLET PO SCH ×3 (10:06→20:13)
[2020-05-24] MEDS: PANTOPRAZOLE 40 MG TABLET PO SCH (10:07)
[2020-05-24] MEDS: BUDESONIDE/FORMOTEROL 160-4.5 INHALER 6 GM INH SCH ×2 (10:07→20:14)
[2020-05-24] MEDS: FUROSEMIDE 40 MG/4 ML VIAL IV SCH ×2 (10:07→20:14)
[2020-05-24] MEDS: carvediloL 3.125 MG TABLET PO SCH ×2 (10:07→17:39)
[2020-05-24] MEDS ORDERED: busPIRone 5 MG TABLET PO PRN (12:36)
[2020-05-24] MEDS: FAMOTIDINE 20 MG TABLET PO SCH (13:42)
[2020-05-24] MEDS: LORATADINE 10 MG TABLET PO PRN (13:42)
[2020-05-24] MEDS: cefTRIAXone 500 MG in SYRINGE 1 EACH IV SCH (13:43)
[2020-05-24] MEDS: FLUTICASONE 50 MCG NASAL SPRAY 16 GM BOTTLE BOTH NARES SCH (14:11)
[2020-05-24] MEDS: PREGABALIN 25 MG CAPSULE PO SCH ×2 (14:11→20:12)
[2020-05-24] MEDS: TOLTERODINE LA 4 MG CAPSULE PO SCH (17:38)
[2020-05-24] MEDS: SIMVASTATIN 20 MG TABLET PO SCH (20:12)
[2020-05-25] MEDS: ALBUTEROL/IPRATROPIUM 3 ML NEB RESP TX SCH ×4 (01:25→20:44)
[2020-05-25] MEDS: methylPREDNISolone SOD SUC 40 MG/1 ML VIAL IV SCH ×3 (03:03→21:14)
[2020-05-25 06:23] LABS: Hematocrit 32.4 VOL% (35.7-47.0); Hemoglobin 10.5 GM/DL (12.0-16.0); Immature Granulocytes % 0.4 %; Immature Granulocytes Absolute 0.03 #; Lymphocytes # 0.3 10*3/uL (1.4-4.0); Lymphocytes % 3.7 % (21.3-54.2); Mean Corpuscular HGB Conc 32.4 GM/DL (32-36); Mean Corpuscular Volume 88.8 FL (87-102); Mean Platelet Volume 11.4 FL (9.6-12.0); Monocytes % 1.5 % (1.7-12.7); Neutrophils % 94.4 % (38.7-73.9); Platelet Count 107 T/CUMM (130-400); Red Blood Count 3.65 MC/CUMM (3.8-5.5); Red Cell Distribution Width 15.3 % (9.3-17.3); White Blood Count 6.8 T/CUMM (4-12)
[2020-05-25 06:40] LABS: Calcium 9.3 MG/DL (8.5-10.1); Osmolality,Calculated 279.8 MOS/KG (273-304)
[2020-05-25 07:00] LABS: Band Neutrophils 3 % (0-10); Hypochromasia 1+; Lymphocytes 3 % (20-55); Microcytosis 1+; Platelet Estimate Decreased; Polychromasia Slight; Segmented Neutrophils 93 % (50-85); Total Cells Counted 100
[2020-05-25] MEDS: carvediloL 3.125 MG TABLET PO SCH ×2 (09:42→16:41)
[2020-05-25] MEDS: sitaGLIPtin 25 MG TABLET PO SCH (09:42)
[2020-05-25] MEDS: PREGABALIN 25 MG CAPSULE PO SCH ×2 (09:42→21:08)
[2020-05-25] MEDS: SILDENAFIL 20 MG TABLET PO SCH ×3 (09:42→21:09)
[2020-05-25] MEDS: INSULIN REGULAR 100 UNIT/ML SUBCUT SCH ×4 (09:43→21:09)
[2020-05-25] MEDS: SPIRONOLACTONE 25 MG TABLET PO SCH (09:43)
[2020-05-25] MEDS: PANTOPRAZOLE 40 MG TABLET PO SCH (09:43)
[2020-05-25] MEDS: FLUTICASONE 50 MCG NASAL SPRAY 16 GM BOTTLE BOTH NARES SCH (09:43)
[2020-05-25] MEDS: ASPIRIN EC 81 MG TABLET PO SCH (09:43)
[2020-05-25] MEDS: FAMOTIDINE 20 MG TABLET PO SCH (09:43)
[2020-05-25] MEDS: FUROSEMIDE 40 MG/4 ML VIAL IV SCH ×2 (09:44→16:20)
[2020-05-25] MEDS: BUDESONIDE/FORMOTEROL 160-4.5 INHALER 6 GM INH SCH ×2 (09:51→21:08)
[2020-05-25] MEDS: cefTRIAXone 500 MG in SYRINGE 1 EACH IV SCH (13:16)
[2020-05-25] MEDS: LORATADINE 10 MG TABLET PO PRN (14:25)
[2020-05-25] MEDS: TOLTERODINE LA 4 MG CAPSULE PO SCH (16:19)
[2020-05-25] MEDS: GABAPENTIN 300 MG CAPSULE PO SCH (21:08)
[2020-05-25] MEDS: SIMVASTATIN 20 MG TABLET PO SCH (21:08)
[2020-05-26] MEDS: ALBUTEROL/IPRATROPIUM 3 ML NEB RESP TX SCH ×4 (02:14→19:28)
[2020-05-26] MEDS: methylPREDNISolone SOD SUC 40 MG/1 ML VIAL IV SCH ×3 (04:30→21:04)
[2020-05-26 05:19] LABS: Basophils % 0.1 % (0.0-0.8); Hematocrit 33.9 VOL% (35.7-47.0); Hemoglobin 10.9 GM/DL (12.0-16.0); Immature Granulocytes % 0.6 %; Immature Granulocytes Absolute 0.04 #; Lymphocytes # 0.3 10*3/uL (1.4-4.0); Lymphocytes % 3.9 % (21.3-54.2); Mean Corpuscular HGB Conc 32.2 GM/DL (32-36); Mean Corpuscular Volume 88.5 FL (87-102); Mean Platelet Volume 11.1 FL (9.6-12.0); Neutrophils % 91.4 % (38.7-73.9); Platelet Count 101 T/CUMM (130-400); Red Blood Count 3.83 MC/CUMM (3.8-5.5); Red Cell Distribution Width 15.4 % (9.3-17.3); White Blood Count 6.7 T/CUMM (4-12)
[2020-05-26 05:35] LABS: Calcium 9.1 MG/DL (8.5-10.1); Osmolality,Calculated 283.8 MOS/KG (273-304)
[2020-05-26 05:46] LABS: Hypochromasia 1+; Lymphocytes 3 % (20-55); Microcytosis 1+; Platelet Estimate Decreased; Segmented Neutrophils 94 % (50-85); Total Cells Counted 100
[2020-05-26 05:47] LABS: Ovalocytes Slight
[2020-05-26] MEDS: PANTOPRAZOLE 40 MG TABLET PO SCH (08:14)
[2020-05-26] MEDS: SPIRONOLACTONE 25 MG TABLET PO SCH (08:15)
[2020-05-26] MEDS: ASPIRIN EC 81 MG TABLET PO SCH (08:15)
[2020-05-26] MEDS: FAMOTIDINE 20 MG TABLET PO SCH (08:15)
[2020-05-26] MEDS: sitaGLIPtin 25 MG TABLET PO SCH (08:15)
[2020-05-26] MEDS: PREGABALIN 25 MG CAPSULE PO SCH ×2 (08:16→21:01)
[2020-05-26] MEDS: carvediloL 3.125 MG TABLET PO SCH ×2 (08:16→17:01)
[2020-05-26] MEDS: SILDENAFIL 20 MG TABLET PO SCH ×3 (08:16→21:01)
[2020-05-26] MEDS: FUROSEMIDE 40 MG/4 ML VIAL IV SCH ×2 (08:17→15:38)
[2020-05-26] MEDS: BUDESONIDE/FORMOTEROL 160-4.5 INHALER 6 GM INH SCH ×2 (08:18→21:05)
[2020-05-26] MEDS: FLUTICASONE 50 MCG NASAL SPRAY 16 GM BOTTLE BOTH NARES SCH (08:18)
[2020-05-26] MEDS: INSULIN REGULAR 100 UNIT/ML SUBCUT SCH ×4 (08:20→21:05)
[2020-05-26] MEDS: cefTRIAXone 500 MG in SYRINGE 1 EACH IV SCH (10:31)
[2020-05-26] MEDS ORDERED: POTASSIUM CHLORIDE 20 MEQ TABLET PO ONE (12:44)
[2020-05-26] MEDS: TOLTERODINE LA 4 MG CAPSULE PO SCH (15:38)
[2020-05-26] MEDS: GABAPENTIN 300 MG CAPSULE PO SCH (21:01)
[2020-05-26] MEDS: SIMVASTATIN 20 MG TABLET PO SCH (21:02)
[2020-05-27] MEDS: ALBUTEROL/IPRATROPIUM 3 ML NEB RESP TX SCH ×4 (00:47→18:52)
[2020-05-27] MEDS: methylPREDNISolone SOD SUC 40 MG/1 ML VIAL IV SCH ×3 (04:14→18:54)
[2020-05-27 06:13] LABS: Hematocrit 33.5 VOL% (35.7-47.0); Hemoglobin 10.8 GM/DL (12.0-16.0); Immature Granulocytes % 0.8 %; Immature Granulocytes Absolute 0.05 #; Lymphocytes # 0.2 10*3/uL (1.4-4.0); Lymphocytes % 3.7 % (21.3-54.2); Mean Corpuscular HGB Conc 32.2 GM/DL (32-36); Mean Corpuscular Volume 88.9 FL (87-102); Mean Platelet Volume 11.4 FL (9.6-12.0); Monocytes % 5.7 % (1.7-12.7); Neutrophils % 89.8 % (38.7-73.9); Red Blood Count 3.77 MC/CUMM (3.8-5.5); Red Cell Distribution Width 15.3 % (9.3-17.3); White Blood Count 6.5 T/CUMM (4-12)
[2020-05-27 06:22] LABS: Platelet Count 93 T/CUMM (130-400)
[2020-05-27 06:35] LABS: Band Neutrophils 1 % (0-10); Hypochromasia 1+; Lymphocytes 3 % (20-55); Microcytosis 1+; Segmented Neutrophils 93 % (50-85); Total Cells Counted 100
[2020-05-27 06:36] LABS: Ovalocytes Slight; Platelet Estimate Decreased; Tear Drop Cells Slight
[2020-05-27 06:47] LABS: Calcium 9.1 MG/DL (8.5-10.1)
[2020-05-27] MEDS: sitaGLIPtin 25 MG TABLET PO SCH (08:16)
[2020-05-27] MEDS: PANTOPRAZOLE 40 MG TABLET PO SCH (08:16)
[2020-05-27] MEDS: carvediloL 3.125 MG TABLET PO SCH ×2 (08:16→16:35)
[2020-05-27] MEDS: SILDENAFIL 20 MG TABLET PO SCH ×3 (08:16→20:49)
[2020-05-27] MEDS: SPIRONOLACTONE 25 MG TABLET PO SCH (08:16)
[2020-05-27] MEDS: FAMOTIDINE 20 MG TABLET PO SCH (08:17)
[2020-05-27] MEDS: ASPIRIN EC 81 MG TABLET PO SCH (08:17)
[2020-05-27] MEDS: INSULIN REGULAR 100 UNIT/ML SUBCUT SCH ×4 (08:19→21:29)
[2020-05-27] MEDS: FUROSEMIDE 40 MG/4 ML VIAL IV SCH ×2 (08:20→16:38)
[2020-05-27] MEDS: FLUTICASONE 50 MCG NASAL SPRAY 16 GM BOTTLE BOTH NARES SCH (08:23)
[2020-05-27] MEDS: BUDESONIDE/FORMOTEROL 160-4.5 INHALER 6 GM INH SCH ×2 (08:23→20:50)
[2020-05-27] MEDS: PREGABALIN 25 MG CAPSULE PO SCH ×2 (09:46→20:50)
[2020-05-27] MEDS: cefTRIAXone 500 MG in SYRINGE 1 EACH IV SCH (11:26)
[2020-05-27] MEDS: TOLTERODINE LA 4 MG CAPSULE PO SCH (16:35)
[2020-05-27] MEDS: GABAPENTIN 300 MG CAPSULE PO SCH (20:49)
[2020-05-27] MEDS: SIMVASTATIN 20 MG TABLET PO SCH (20:50)
[2020-05-28] MEDS: ALBUTEROL/IPRATROPIUM 3 ML NEB RESP TX SCH ×3 (01:56→13:16)
[2020-05-28] MEDS: methylPREDNISolone SOD SUC 40 MG/1 ML VIAL IV SCH ×2 (02:06→12:13)
[2020-05-28 05:37] LABS: Hematocrit 33.6 VOL% (35.7-47.0); Hemoglobin 10.9 GM/DL (12.0-16.0); Immature Granulocytes % 1.5 %; Immature Granulocytes Absolute 0.06 #; Lymphocytes # 0.2 10*3/uL (1.4-4.0); Lymphocytes % 5.1 % (21.3-54.2); Mean Corpuscular HGB Conc 32.4 GM/DL (32-36); Mean Corpuscular Volume 87.3 FL (87-102); Mean Platelet Volume 11.9 FL (9.6-12.0); Monocytes % 6.3 % (1.7-12.7); Neutrophils % 87.1 % (38.7-73.9); Platelet Count 82 T/CUMM (130-400); Red Blood Count 3.85 MC/CUMM (3.8-5.5); Red Cell Distribution Width 15.1 % (9.3-17.3); White Blood Count 4.1 T/CUMM (4-12)
[2020-05-28 06:04] LABS: Hypochromasia 1+; Microcytosis 1+; Platelet Estimate Decreased
[2020-05-28 06:20] LABS: Osmolality,Calculated 290.5 MOS/KG (273-304)
[2020-05-28] MEDS: FUROSEMIDE 40 MG/4 ML VIAL IV SCH (08:57)
[2020-05-28] MEDS: SILDENAFIL 20 MG TABLET PO SCH ×2 (08:58→17:14)
[2020-05-28] MEDS: carvediloL 3.125 MG TABLET PO SCH ×2 (08:58→17:14)
[2020-05-28] MEDS: sitaGLIPtin 25 MG TABLET PO SCH (08:58)
[2020-05-28] MEDS: INSULIN REGULAR 100 UNIT/ML SUBCUT SCH ×2 (08:58→12:18)
[2020-05-28] MEDS: SPIRONOLACTONE 25 MG TABLET PO SCH (08:58)
[2020-05-28] MEDS: PANTOPRAZOLE 40 MG TABLET PO SCH (08:59)
[2020-05-28] MEDS: BUDESONIDE/FORMOTEROL 160-4.5 INHALER 6 GM INH SCH (08:59)
[2020-05-28] MEDS: PREGABALIN 25 MG CAPSULE PO SCH (08:59)
[2020-05-28] MEDS: FLUTICASONE 50 MCG NASAL SPRAY 16 GM BOTTLE BOTH NARES SCH (08:59)
[2020-05-28] MEDS: FAMOTIDINE 20 MG TABLET PO SCH (08:59)
[2020-05-28] MEDS: ASPIRIN EC 81 MG TABLET PO SCH (08:59)
[2020-05-28] MEDS: cefTRIAXone 500 MG in SYRINGE 1 EACH IV SCH (12:14)
[2020-05-28 15:37] VITALS: BP 123/59
[2020-05-28] MEDS: TOLTERODINE LA 4 MG CAPSULE PO SCH (17:14)
== END 2020-05-28 17:33 | disposition home or self-care (01) | DRG 291 ==
LOC: EDUNIT# → EDBD → N.ED 00:28 → N.EDINP 00:28 → N.TELEN 03:36
PROVIDERS: ADMIT Family Medicine; ATTEND Family Medicine

== ENCOUNTER 2020-06-10 21:24 | Inpatient (IN) ==
[2020-06-10 22:27] LABS: ABG Base Excess 1.7 MMOL/L (-2.5-2.5); ABG HCO3 25.9 MMOL/L (20-26); ABG Oxygen Saturation 98.2 % (95-100); ABG PCO2 35.2 MM HG (35-48); ABG PH 7.463 (7.35-7.45); ABG PO2 94.6 MM HG (80-95); ABG TCO2 22.6 MMOL/L (23-27); Allen Test Positive
[2020-06-10 22:50] LABS: Basophils % 0.5 % (0.0-0.8); Eosinophils # 0.2 10*3/uL (0.0-0.87); Eosinophils % 3.2 % (0.00-10.9); Hematocrit 35.4 VOL% (35.7-47.0); Hemoglobin 11.3 GM/DL (12.0-16.0); Immature Granulocytes % 0.7 %; Immature Granulocytes Absolute 0.05 #; Lymphocytes # 0.9 10*3/uL (1.4-4.0); Lymphocytes % 12.4 % (21.3-54.2); Mean Corpuscular HGB Conc 31.9 GM/DL (32-36); Mean Corpuscular Volume 87.8 FL (87-102); Mean Platelet Volume 10.9 FL (9.6-12.0); Monocytes % 6.8 % (1.7-12.7); Neutrophils % 76.4 % (38.7-73.9); Platelet Count 86 T/CUMM (130-400); Red Blood Count 4.03 MC/CUMM (3.8-5.5); Red Cell Distribution Width 15.5 % (9.3-17.3); White Blood Count 7.5 T/CUMM (4-12)
[2020-06-10 22:56] LABS: Bilirubin,Urine Negative (Negative); Blood, Urine Negative (Negative); Glucose,Urine (UA) Negative (Negative); Hyaline Casts,Urine 1 /LPF (0-3); Ketones,Urine Negative (Negative); Nitrite,Urine Negative (Negative); Protein,Urine Negative; RBC,Urine <1 /HPF (0-4); Squamous Epithelial Cell,Urine Occasional /HPF (0-10); Urine Appearance CLEAR (Clear); Urine Color Yellow (Yellow); Urine Specific Gravity 1.008 (1.001-1.035); Urine Urobilinogen < 2.0 EU/DL (0.2-1.0); WBC,Urine <1 /HPF (0-6)
[2020-06-10 22:58] LABS: INR 1.1; PT Patient Result 11.8 SECS (9.8-11.9)
[2020-06-10 23:17] LABS: Albumin 3.4 G/DL (3.4-5.0); Bilirubin,Total 1.1 MG/DL (0.2-1.0); Calcium 9.2 MG/DL (8.5-10.1); Ferritin 62.2 ng/ml (8-252); Osmolality,Calculated 280.5 MOS/KG (273-304); Total Protein 6.4 G/DL (6.4-8.3)
[2020-06-10 23:23] LABS: Hypochromasia 2+; Ovalocytes 1+; Platelet Estimate Decreased
[2020-06-10] MEDS ORDERED: FUROSEMIDE 40 MG/4 ML VIAL IV STA (23:25)
[2020-06-10] MEDS ORDERED: ACETAMINOPHEN 325 MG TABLET PO PRN (23:31)
[2020-06-10] MEDS ORDERED: ONDANSETRON 4 MG/2 ML VIAL IV PRN (23:31)
[2020-06-11 05:05] LABS: Basophils % 0.6 % (0.0-0.8); Eosinophils # 0.3 10*3/uL (0.0-0.87); Eosinophils % 4.1 % (0.00-10.9); Hematocrit 37.7 VOL% (35.7-47.0); Hemoglobin 12.1 GM/DL (12.0-16.0); Immature Granulocytes % 0.6 %; Immature Granulocytes Absolute 0.04 #; Lymphocytes % 14.3 % (21.3-54.2); Mean Corpuscular HGB Conc 32.1 GM/DL (32-36); Mean Corpuscular Volume 87.7 FL (87-102); Monocytes % 6.7 % (1.7-12.7); Neutrophils % 73.7 % (38.7-73.9); Red Cell Distribution Width 15.8 % (9.3-17.3); White Blood Count 7.3 T/CUMM (4-12)
[2020-06-11 05:09] LABS: Platelet Count 91 T/CUMM (130-400)
[2020-06-11 05:27] LABS: Albumin 3.6 G/DL (3.4-5.0); Bilirubin,Total 1.5 MG/DL (0.2-1.0); Calcium 9.8 MG/DL (8.5-10.1); Osmolality,Calculated 282.4 MOS/KG (273-304)
[2020-06-11 05:29] LABS: Hypochromasia 1+; Microcytosis 1+; Ovalocytes Slight; Platelet Estimate Decreased
[2020-06-11] MEDS: ALBUTEROL/IPRATROPIUM 3 ML NEB RESP TX SCH ×3 (08:40→19:23)
[2020-06-11] MEDS: SPIRONOLACTONE 25 MG TABLET PO SCH (09:28)
[2020-06-11] MEDS: carvediloL 3.125 MG TABLET PO SCH ×2 (09:28→21:14)
[2020-06-11] MEDS: SILDENAFIL 20 MG TABLET PO SCH ×3 (09:28→21:14)
[2020-06-11] MEDS: PANTOPRAZOLE 40 MG VIAL IV SCH (09:29)
[2020-06-11] MEDS: ASPIRIN EC 81 MG TABLET PO SCH (09:29)
[2020-06-11] MEDS: FUROSEMIDE 40 MG/4 ML VIAL IV SCH ×2 (09:31→21:12)
[2020-06-11] MEDS: BUDESONIDE/FORMOTEROL 160-4.5 INHALER 6 GM INH SCH ×2 (11:17→21:19)
[2020-06-11] MEDS ORDERED: LORATADINE 10 MG TABLET PO PRN (16:28)
[2020-06-11] MEDS ORDERED: FLUTICASONE 50 MCG NASAL SPRAY 16 GM BOTTLE BOTH NARES PRN (16:36)
[2020-06-11] MEDS: sitaGLIPtin 25 MG TABLET PO SCH (17:11)
[2020-06-11] MEDS ORDERED: ALBUTEROL 2.5 MG/3 ML NEB RESP TX PRN (19:00)
[2020-06-11] MEDS: GABAPENTIN 300 MG CAPSULE PO SCH (21:13)
[2020-06-11] MEDS: valACYclovir 500 MG TABLET PO SCH (21:13)
[2020-06-11] MEDS: SIMVASTATIN 20 MG TABLET PO SCH (21:14)
[2020-06-12] MEDS: ALBUTEROL/IPRATROPIUM 3 ML NEB RESP TX SCH ×4 (01:00→19:07)
[2020-06-12] MEDS: FUROSEMIDE 40 MG/4 ML VIAL IV SCH ×2 (09:17→17:20)
[2020-06-12] MEDS: PANTOPRAZOLE 40 MG VIAL IV SCH (09:17)
[2020-06-12] MEDS: sitaGLIPtin 25 MG TABLET PO SCH (09:45)
[2020-06-12] MEDS: carvediloL 3.125 MG TABLET PO SCH ×2 (09:46→21:10)
[2020-06-12] MEDS: ASPIRIN EC 81 MG TABLET PO SCH (09:46)
[2020-06-12] MEDS: valACYclovir 500 MG TABLET PO SCH ×3 (09:46→21:10)
[2020-06-12] MEDS: SPIRONOLACTONE 25 MG TABLET PO SCH (09:46)
[2020-06-12] MEDS: SILDENAFIL 20 MG TABLET PO SCH ×3 (09:46→21:10)
[2020-06-12] MEDS: diphenhydrAMINE CAP 25 MG CAPSULE PO SCH (09:47)
[2020-06-12] MEDS: TOLTERODINE LA 4 MG CAPSULE PO SCH (09:47)
[2020-06-12] MEDS: BUDESONIDE/FORMOTEROL 160-4.5 INHALER 6 GM INH SCH ×2 (09:48→21:12)
[2020-06-12] MEDS: GABAPENTIN 300 MG CAPSULE PO SCH (21:10)
[2020-06-12] MEDS: SIMVASTATIN 20 MG TABLET PO SCH (21:11)
[2020-06-13] MEDS: ALBUTEROL/IPRATROPIUM 3 ML NEB RESP TX SCH ×4 (00:16→19:29)
[2020-06-13] MEDS: TOLTERODINE LA 4 MG CAPSULE PO SCH (08:37)
[2020-06-13] MEDS: carvediloL 3.125 MG TABLET PO SCH ×2 (08:37→21:46)
[2020-06-13] MEDS: ASPIRIN EC 81 MG TABLET PO SCH (08:37)
[2020-06-13] MEDS: sitaGLIPtin 25 MG TABLET PO SCH (08:37)
[2020-06-13] MEDS: SILDENAFIL 20 MG TABLET PO SCH ×3 (08:38→21:46)
[2020-06-13] MEDS: diphenhydrAMINE CAP 25 MG CAPSULE PO SCH (08:38)
[2020-06-13] MEDS: valACYclovir 500 MG TABLET PO SCH ×3 (08:41→21:46)
[2020-06-13] MEDS: BUDESONIDE/FORMOTEROL 160-4.5 INHALER 6 GM INH SCH ×2 (08:42→21:47)
[2020-06-13] MEDS: SPIRONOLACTONE 25 MG TABLET PO SCH (08:44)
[2020-06-13 10:29] LABS: Calcium 9.2 MG/DL (8.5-10.1)
[2020-06-13] MEDS: FUROSEMIDE 40 MG/4 ML VIAL IV SCH ×2 (10:35→17:45)
[2020-06-13] MEDS: PANTOPRAZOLE 40 MG VIAL IV SCH (10:36)
[2020-06-13] MEDS: SIMVASTATIN 20 MG TABLET PO SCH (21:45)
[2020-06-13] MEDS: GABAPENTIN 300 MG CAPSULE PO SCH (21:45)
[2020-06-14] MEDS: ALBUTEROL/IPRATROPIUM 3 ML NEB RESP TX SCH ×4 (00:35→19:27)
[2020-06-14] MEDS: carvediloL 3.125 MG TABLET PO SCH ×2 (09:08→20:46)
[2020-06-14] MEDS: diphenhydrAMINE CAP 25 MG CAPSULE PO SCH (09:09)
[2020-06-14] MEDS: SILDENAFIL 20 MG TABLET PO SCH ×3 (09:09→20:46)
[2020-06-14] MEDS: ASPIRIN EC 81 MG TABLET PO SCH (09:09)
[2020-06-14] MEDS: SPIRONOLACTONE 25 MG TABLET PO SCH (09:09)
[2020-06-14] MEDS: TOLTERODINE LA 4 MG CAPSULE PO SCH (09:09)
[2020-06-14] MEDS: sitaGLIPtin 25 MG TABLET PO SCH (09:10)
[2020-06-14] MEDS: valACYclovir 500 MG TABLET PO SCH ×3 (09:11→20:47)
[2020-06-14] MEDS: BUDESONIDE/FORMOTEROL 160-4.5 INHALER 6 GM INH SCH ×2 (09:12→20:50)
[2020-06-14] MEDS: PANTOPRAZOLE 40 MG VIAL IV SCH (10:31)
[2020-06-14] MEDS: FUROSEMIDE 40 MG/4 ML VIAL IV SCH ×2 (10:33→18:00)
[2020-06-14] MEDS: GABAPENTIN 300 MG CAPSULE PO SCH (20:46)
[2020-06-14] MEDS: SIMVASTATIN 20 MG TABLET PO SCH (20:46)
[2020-06-15] MEDS: ALBUTEROL/IPRATROPIUM 3 ML NEB RESP TX SCH ×4 (01:36→19:25)
[2020-06-15 05:28] LABS: Basophils % 0.5 % (0.0-0.8); Eosinophils # 0.3 10*3/uL (0.0-0.87); Eosinophils % 6.4 % (0.00-10.9); Hematocrit 34.6 VOL% (35.7-47.0); Hemoglobin 11.3 GM/DL (12.0-16.0); Immature Granulocytes % 0.5 %; Immature Granulocytes Absolute 0.02 #; Lymphocytes # 0.7 10*3/uL (1.4-4.0); Lymphocytes % 16.5 % (21.3-54.2); Mean Corpuscular HGB Conc 32.7 GM/DL (32-36); Mean Corpuscular Volume 86.7 FL (87-102); Mean Platelet Volume 10.8 FL (9.6-12.0); Monocytes % 9.6 % (1.7-12.7); Neutrophils % 66.5 % (38.7-73.9); Platelet Count 113 T/CUMM (130-400); Red Blood Count 3.99 MC/CUMM (3.8-5.5); Red Cell Distribution Width 15.9 % (9.3-17.3); White Blood Count 4.4 T/CUMM (4-12)
[2020-06-15 05:41] LABS: Calcium 9.2 MG/DL (8.5-10.1)
[2020-06-15] MEDS: ASPIRIN EC 81 MG TABLET PO SCH (08:55)
[2020-06-15] MEDS: SPIRONOLACTONE 25 MG TABLET PO SCH (08:55)
[2020-06-15] MEDS: sitaGLIPtin 25 MG TABLET PO SCH (08:56)
[2020-06-15] MEDS: TOLTERODINE LA 4 MG CAPSULE PO SCH (08:56)
[2020-06-15] MEDS: diphenhydrAMINE CAP 25 MG CAPSULE PO SCH (08:56)
[2020-06-15] MEDS: FUROSEMIDE 80 MG TABLET PO SCH (08:56)
[2020-06-15] MEDS: carvediloL 3.125 MG TABLET PO SCH ×2 (08:56→20:33)
[2020-06-15] MEDS: valACYclovir 500 MG TABLET PO SCH ×3 (08:57→20:32)
[2020-06-15] MEDS: BUDESONIDE/FORMOTEROL 160-4.5 INHALER 6 GM INH SCH ×2 (08:57→20:31)
[2020-06-15] MEDS: SILDENAFIL 20 MG TABLET PO SCH ×3 (08:57→20:33)
[2020-06-15] MEDS: PANTOPRAZOLE 40 MG VIAL IV SCH (08:57)
[2020-06-15] MEDS ORDERED: FUROSEMIDE 40 MG TABLET PO SCH ×2 (09:00→16:00)
[2020-06-15] MEDS: GABAPENTIN 300 MG CAPSULE PO SCH (20:32)
[2020-06-15] MEDS: SIMVASTATIN 20 MG TABLET PO SCH (20:32)
[2020-06-16] MEDS: ALBUTEROL/IPRATROPIUM 3 ML NEB RESP TX SCH ×2 (02:34→07:40)
[2020-06-16 06:42] LABS: Calcium 9.4 MG/DL (8.5-10.1)
[2020-06-16 08:15] VITALS: BP 98/56
[2020-06-16] MEDS: diphenhydrAMINE CAP 25 MG CAPSULE PO SCH (09:37)
[2020-06-16] MEDS: FUROSEMIDE 80 MG TABLET PO SCH (09:37)
[2020-06-16] MEDS: sitaGLIPtin 25 MG TABLET PO SCH (09:37)
[2020-06-16] MEDS: TOLTERODINE LA 4 MG CAPSULE PO SCH (09:37)
[2020-06-16] MEDS: carvediloL 3.125 MG TABLET PO SCH (09:37)
[2020-06-16] MEDS: SPIRONOLACTONE 25 MG TABLET PO SCH (09:37)
[2020-06-16] MEDS: valACYclovir 500 MG TABLET PO SCH (09:37)
[2020-06-16] MEDS: BUDESONIDE/FORMOTEROL 160-4.5 INHALER 6 GM INH SCH (09:37)
[2020-06-16] MEDS: ASPIRIN EC 81 MG TABLET PO SCH (09:37)
[2020-06-16] MEDS: SILDENAFIL 20 MG TABLET PO SCH (09:37)
[2020-06-16] MEDS: PANTOPRAZOLE 40 MG VIAL IV SCH (09:37)
== END 2020-06-16 13:25 | disposition home health service (06) | DRG 291 ==
LOC: EDBD → EDUNIT# → N.EDINP 21:24 → N.ED 21:24 → N.TELEN 06-11 00:37
PROVIDERS: ADMIT Family Medicine; ATTEND Family Medicine

== ENCOUNTER 2021-06-01 17:33 | Inpatient (IN) ==
[2021-06-01] MEDS ORDERED: ALBUTEROL/IPRATROPIUM 3 ML NEB RESP TX STA (17:57)
[2021-06-01] MEDS ORDERED: SODIUM CHLORIDE 0.9% 1,000 ML IV STA (17:57)
[2021-06-01 18:40] LABS: Basophils % 0.7 % (0.0-0.8); Eosinophils # 0.1 10*3/uL (0.0-0.87); Eosinophils % 1.5 % (0.00-10.9); Hematocrit 39.2 VOL% (35.7-47.0); Hemoglobin 12.8 GM/DL (12.0-16.0); Immature Granulocytes % 0.5 %; Immature Granulocytes Absolute 0.03 #; Lymphocytes # 0.4 10*3/uL (1.4-4.0); Lymphocytes % 6.6 % (21.3-54.2); Mean Corpuscular HGB Conc 32.7 GM/DL (32-36); Mean Corpuscular Volume 86.2 FL (87-102); Mean Platelet Volume 10.5 FL (9.6-12.0); Monocytes % 9.6 % (1.7-12.7); Neutrophils % 81.1 % (38.7-73.9); Platelet Count 124 T/CUMM (130-400); Red Blood Count 4.55 MC/CUMM (3.8-5.5); Red Cell Distribution Width 14.6 % (9.3-17.3); White Blood Count 6.1 T/CUMM (4-12)
[2021-06-01 18:57] LABS: Albumin 3.8 G/DL (3.4-5.0); Bilirubin,Total 1.2 MG/DL (0.20-1.00); Calcium 9.3 MG/DL (8.5-10.1); Osmolality,Calculated 275.2 MOS/KG (273-304); Potassium 4.1 MMOL/L (3.5-5.1); Thyroid Stimulating Hormone 1.13 uIU/ml (0.358-3.74); Total Protein 7.3 G/DL (6.4-8.2)
[2021-06-01] MEDS ORDERED: cefTRIAXone 1,000 MG in SODIUM CHLORIDE 0.9% 100 ML IV STA (19:40)
[2021-06-01] MEDS ORDERED: LEVOFLOXACIN INJ 750 MG/150 ML PREMIX IV STA (19:41)
[2021-06-01 20:32] LABS: Bilirubin,Urine Negative (Negative); Blood, Urine Negative (Negative); Glucose,Urine (UA) Negative (Negative); Hyaline Casts,Urine 1 /LPF (0-3); Ketones,Urine Negative (Negative); Mucus,Urine Occasional /LPF (Occasional); Nitrite,Urine Negative (Negative); Protein,Urine Negative; RBC,Urine 2 /HPF (0-4); Squamous Epithelial Cell,Urine Occasional /HPF (0-10); Urine Appearance CLEAR (Clear); Urine Color Straw (Yellow); Urine Specific Gravity 1.006 (1.001-1.035); Urine Urobilinogen < 2.0 EU/DL (0.2-1.0)
[2021-06-01] MEDS ORDERED: FUROSEMIDE 40 MG/4 ML VIAL IV STA (21:12)
[2021-06-01] MEDS ORDERED: ACETAMINOPHEN 325 MG TABLET PO PRN (23:04)
[2021-06-01] MEDS ORDERED: ONDANSETRON 4 MG/2 ML VIAL IV PRN (23:04)
[2021-06-02] MEDS: ALBUTEROL/IPRATROPIUM 3 ML NEB RESP TX SCH ×4 (00:47→20:00)
[2021-06-02] MEDS: DOCUSATE SODIUM 100 MG CAPSULE PO SCH ×2 (08:38→22:08)
[2021-06-02] MEDS: FUROSEMIDE 40 MG/4 ML VIAL IV SCH ×2 (08:38→22:08)
[2021-06-02] MEDS: PANTOPRAZOLE 40 MG TABLET PO SCH (08:38)
[2021-06-02 17:59] LABS: Lactic Acid 1.6 MMOL/L (0.4-2.0)
[2021-06-02] MEDS ORDERED: DILTIAZEM 50 MG/10 ML VIAL IV ONE (23:09)
[2021-06-03] MEDS: ALBUTEROL/IPRATROPIUM 3 ML NEB RESP TX SCH ×4 (00:08→21:51)
[2021-06-03] MEDS: DILTIAZEM INJ 100 MG in SODIUM CHLORIDE 0.9% 100 ML IV SCH ×2 (00:56→23:38)
[2021-06-03 07:30] LABS: Basophils % 0.5 % (0.0-0.8); Eosinophils # 0.2 10*3/uL (0.0-0.87); Eosinophils % 2.3 % (0.00-10.9); Hematocrit 41.7 VOL% (35.7-47.0); Hemoglobin 13.8 GM/DL (12.0-16.0); Immature Granulocytes % 0.5 %; Immature Granulocytes Absolute 0.03 #; Lymphocytes # 0.6 10*3/uL (1.4-4.0); Lymphocytes % 9.4 % (21.3-54.2); Mean Corpuscular HGB Conc 33.1 GM/DL (32-36); Mean Corpuscular Volume 86.2 FL (87-102); Mean Platelet Volume 10.4 FL (9.6-12.0); Monocytes % 11.3 % (1.7-12.7); Platelet Count 111 T/CUMM (130-400); Red Blood Count 4.84 MC/CUMM (3.8-5.5); Red Cell Distribution Width 14.6 % (9.3-17.3); White Blood Count 6.4 T/CUMM (4-12)
[2021-06-03] MEDS ORDERED: DIGOXIN 0.5 MG/2 ML AMP IV ONE (07:34)
[2021-06-03 07:48] LABS: Band Neutrophils 1 % (0-10); Lymphocytes 9 % (20-55); Segmented Neutrophils 80 % (50-85); Total Cells Counted 100
[2021-06-03 07:49] LABS: Hypochromasia Slight; Microcytosis Slight
[2021-06-03 07:56] LABS: Calcium 9.9 MG/DL (8.5-10.1); Osmolality,Calculated 275.2 MOS/KG (273-304); Potassium 3.6 MMOL/L (3.5-5.1)
[2021-06-03] MEDS: ASPIRIN EC 81 MG TABLET PO SCH (09:14)
[2021-06-03] MEDS: APIXABAN 2.5 MG TABLET PO SCH ×2 (09:14→21:39)
[2021-06-03] MEDS: DILTIAZEM 30 MG TABLET PO SCH ×4 (09:15→23:49)
[2021-06-03] MEDS: SOTALOL 80 MG TABLET PO SCH ×2 (09:15→21:37)
[2021-06-03] MEDS: MULTIVITAMIN (CENTRUM) TABLET PO SCH (09:15)
[2021-06-03] MEDS: PANTOPRAZOLE 40 MG TABLET PO SCH (09:15)
[2021-06-03] MEDS: DOCUSATE SODIUM 100 MG CAPSULE PO SCH ×2 (09:15→21:38)
[2021-06-03] MEDS: ASCORBIC ACID 500 MG TABLET PO SCH ×2 (09:15→21:38)
[2021-06-03] MEDS: SPIRONOLACTONE 25 MG TABLET PO SCH (09:16)
[2021-06-03] MEDS: SILDENAFIL 20 MG TABLET PO SCH ×3 (09:16→21:38)
[2021-06-03] MEDS: FUROSEMIDE 40 MG/4 ML VIAL IV SCH ×2 (09:16→21:39)
[2021-06-03] MEDS ORDERED: SIMVASTATIN 20 MG TABLET PO SCH (21:00)
[2021-06-03] MEDS ORDERED: ROSUVASTATIN 10 MG TABLET PO SCH (21:00)
[2021-06-04] MEDS: ALBUTEROL/IPRATROPIUM 3 ML NEB RESP TX SCH ×4 (01:00→19:46)
[2021-06-04] MEDS: DILTIAZEM 30 MG TABLET PO SCH (05:47)
[2021-06-04] MEDS ORDERED: POTASSIUM CHLORIDE 10 MEQ TABLET PO ONE (06:53)
[2021-06-04 07:16] LABS: Basophils % 0.5 % (0.0-0.8); Eosinophils # 0.3 10*3/uL (0.0-0.87); Eosinophils % 5.3 % (0.00-10.9); Hematocrit 41.3 VOL% (35.7-47.0); Hemoglobin 13.4 GM/DL (12.0-16.0); Immature Granulocytes % 0.3 %; Immature Granulocytes Absolute 0.02 #; Lymphocytes # 0.9 10*3/uL (1.4-4.0); Lymphocytes % 15.2 % (21.3-54.2); Mean Corpuscular HGB Conc 32.4 GM/DL (32-36); Mean Corpuscular Volume 86.2 FL (87-102); Mean Platelet Volume 10.9 FL (9.6-12.0); Monocytes % 12.1 % (1.7-12.7); Neutrophils % 66.6 % (38.7-73.9); Platelet Count 125 T/CUMM (130-400); Red Blood Count 4.79 MC/CUMM (3.8-5.5); Red Cell Distribution Width 14.3 % (9.3-17.3); White Blood Count 5.8 T/CUMM (4-12)
[2021-06-04 07:34] LABS: Calcium 9.7 MG/DL (8.5-10.1); Osmolality,Calculated 279.2 MOS/KG (273-304); Potassium 3.5 MMOL/L (3.5-5.1)
[2021-06-04 07:56] LABS: Ovalocytes Slight; Platelet Estimate Adequate
[2021-06-04] MEDS: MULTIVITAMIN (CENTRUM) TABLET PO SCH (08:50)
[2021-06-04] MEDS: DOCUSATE SODIUM 100 MG CAPSULE PO SCH ×2 (08:50→21:39)
[2021-06-04] MEDS: ASPIRIN EC 81 MG TABLET PO SCH (08:50)
[2021-06-04] MEDS: FUROSEMIDE 80 MG TABLET PO SCH (08:50)
[2021-06-04] MEDS: SOTALOL 80 MG TABLET PO SCH ×2 (08:50→21:39)
[2021-06-04] MEDS: SPIRONOLACTONE 25 MG TABLET PO SCH (08:50)
[2021-06-04] MEDS: SILDENAFIL 20 MG TABLET PO SCH ×3 (08:51→21:39)
[2021-06-04] MEDS: ASCORBIC ACID 500 MG TABLET PO SCH ×2 (08:51→21:39)
[2021-06-04] MEDS: APIXABAN 2.5 MG TABLET PO SCH ×2 (08:51→21:39)
[2021-06-04] MEDS: PANTOPRAZOLE 40 MG TABLET PO SCH (08:51)
[2021-06-04] MEDS: carvediloL 3.125 MG TABLET PO SCH ×2 (08:53→21:40)
[2021-06-04] MEDS: FUROSEMIDE 40 MG TABLET PO SCH (16:17)
[2021-06-04] MEDS: SIMVASTATIN 10 MG TABLET PO SCH (21:39)
[2021-06-05] MEDS: ALBUTEROL/IPRATROPIUM 3 ML NEB RESP TX SCH ×4 (02:18→19:34)
[2021-06-05 05:27] LABS: Basophils % 0.3 % (0.0-0.8); Eosinophils # 0.4 10*3/uL (0.0-0.87); Eosinophils % 5.8 % (0.00-10.9); Hematocrit 40.8 VOL% (35.7-47.0); Hemoglobin 13.4 GM/DL (12.0-16.0); Immature Granulocytes % 0.4 %; Immature Granulocytes Absolute 0.03 #; Lymphocytes # 1.1 10*3/uL (1.4-4.0); Lymphocytes % 15.8 % (21.3-54.2); Mean Corpuscular HGB Conc 32.8 GM/DL (32-36); Mean Corpuscular Volume 85.5 FL (87-102); Mean Platelet Volume 11.6 FL (9.6-12.0); Monocytes % 10.6 % (1.7-12.7); Neutrophils % 67.1 % (38.7-73.9); Platelet Count 126 T/CUMM (130-400); Red Blood Count 4.77 MC/CUMM (3.8-5.5); Red Cell Distribution Width 14.2 % (9.3-17.3); White Blood Count 6.9 T/CUMM (4-12)
[2021-06-05 05:40] LABS: Calcium 9.9 MG/DL (8.5-10.1); Osmolality,Calculated 279.7 MOS/KG (273-304); Potassium 3.9 MMOL/L (3.5-5.1)
[2021-06-05] MEDS: MULTIVITAMIN (CENTRUM) TABLET PO SCH (09:16)
[2021-06-05] MEDS: ASCORBIC ACID 500 MG TABLET PO SCH ×2 (09:17→21:36)
[2021-06-05] MEDS: FUROSEMIDE 80 MG TABLET PO SCH (09:17)
[2021-06-05] MEDS: DOCUSATE SODIUM 100 MG CAPSULE PO SCH ×2 (09:18→21:36)
[2021-06-05] MEDS: APIXABAN 2.5 MG TABLET PO SCH ×2 (09:18→21:37)
[2021-06-05] MEDS: ASPIRIN EC 81 MG TABLET PO SCH (09:19)
[2021-06-05] MEDS: SOTALOL 80 MG TABLET PO SCH ×2 (09:19→21:37)
[2021-06-05] MEDS: carvediloL 3.125 MG TABLET PO SCH ×2 (09:20→21:37)
[2021-06-05] MEDS: PANTOPRAZOLE 40 MG TABLET PO SCH (09:20)
[2021-06-05] MEDS: SILDENAFIL 20 MG TABLET PO SCH ×3 (09:21→21:36)
[2021-06-05] MEDS: SPIRONOLACTONE 25 MG TABLET PO SCH (09:21)
[2021-06-05] MEDS: FUROSEMIDE 40 MG TABLET PO SCH (15:33)
[2021-06-05] MEDS: SIMVASTATIN 10 MG TABLET PO SCH (21:36)
[2021-06-05] MEDS: TOLTERODINE LA 4 MG CAPSULE PO SCH (23:50)
[2021-06-06] MEDS: ALBUTEROL/IPRATROPIUM 3 ML NEB RESP TX SCH ×4 (02:20→19:08)
[2021-06-06 05:46] LABS: Basophils % 0.2 % (0.0-0.8); Eosinophils # 0.4 10*3/uL (0.0-0.87); Eosinophils % 4.4 % (0.00-10.9); Hematocrit 42.6 VOL% (35.7-47.0); Hemoglobin 13.7 GM/DL (12.0-16.0); Immature Granulocytes % 0.7 %; Immature Granulocytes Absolute 0.07 #; Lymphocytes # 1.4 10*3/uL (1.4-4.0); Lymphocytes % 14.9 % (21.3-54.2); Mean Corpuscular HGB Conc 32.2 GM/DL (32-36); Mean Corpuscular Volume 86.1 FL (87-102); Mean Platelet Volume 11.5 FL (9.6-12.0); Monocytes % 8.1 % (1.7-12.7); Neutrophils % 71.7 % (38.7-73.9); Platelet Count 181 T/CUMM (130-400); Red Blood Count 4.95 MC/CUMM (3.8-5.5); Red Cell Distribution Width 14.2 % (9.3-17.3); White Blood Count 9.5 T/CUMM (4-12)
[2021-06-06 06:05] LABS: Osmolality,Calculated 282.5 MOS/KG (273-304); Potassium 3.8 MMOL/L (3.5-5.1)
[2021-06-06 06:16] LABS: Platelet Estimate Adequate
[2021-06-06] MEDS: sitaGLIPtin 25 MG TABLET PO SCH (09:59)
[2021-06-06] MEDS: SPIRONOLACTONE 25 MG TABLET PO SCH (09:59)
[2021-06-06] MEDS: SOTALOL 80 MG TABLET PO SCH ×2 (09:59→20:54)
[2021-06-06] MEDS: PANTOPRAZOLE 40 MG TABLET PO SCH (09:59)
[2021-06-06] MEDS: SILDENAFIL 20 MG TABLET PO SCH ×3 (09:59→20:55)
[2021-06-06] MEDS: MULTIVITAMIN (CENTRUM) TABLET PO SCH (10:00)
[2021-06-06] MEDS: ASCORBIC ACID 500 MG TABLET PO SCH ×2 (10:00→20:54)
[2021-06-06] MEDS: FUROSEMIDE 80 MG TABLET PO SCH (10:00)
[2021-06-06] MEDS: APIXABAN 2.5 MG TABLET PO SCH ×2 (10:00→20:55)
[2021-06-06] MEDS: carvediloL 3.125 MG TABLET PO SCH ×2 (10:00→20:54)
[2021-06-06] MEDS: DOCUSATE SODIUM 100 MG CAPSULE PO SCH ×2 (10:00→21:20)
[2021-06-06] MEDS: ASPIRIN EC 81 MG TABLET PO SCH (10:00)
[2021-06-06] MEDS: FUROSEMIDE 40 MG TABLET PO SCH (15:24)
[2021-06-06] MEDS: TOLTERODINE LA 4 MG CAPSULE PO SCH (20:55)
[2021-06-06] MEDS: SIMVASTATIN 10 MG TABLET PO SCH (20:55)
[2021-06-07] MEDS: ALBUTEROL/IPRATROPIUM 3 ML NEB RESP TX SCH ×4 (00:36→19:33)
[2021-06-07 06:11] LABS: Basophils % 0.6 % (0.0-0.8); Eosinophils # 0.4 10*3/uL (0.0-0.87); Eosinophils % 5.9 % (0.00-10.9); Hematocrit 40.4 VOL% (35.7-47.0); Hemoglobin 13.2 GM/DL (12.0-16.0); Immature Granulocytes % 0.7 %; Immature Granulocytes Absolute 0.05 #; Lymphocytes # 1.1 10*3/uL (1.4-4.0); Lymphocytes % 15.1 % (21.3-54.2); Mean Corpuscular HGB Conc 32.7 GM/DL (32-36); Mean Corpuscular Volume 86.3 FL (87-102); Mean Platelet Volume 11.1 FL (9.6-12.0); Monocytes % 8.6 % (1.7-12.7); Neutrophils % 69.1 % (38.7-73.9); Platelet Count 147 T/CUMM (130-400); Red Blood Count 4.68 MC/CUMM (3.8-5.5); White Blood Count 7.1 T/CUMM (4-12)
[2021-06-07 06:39] LABS: Calcium 9.9 MG/DL (8.5-10.1); Osmolality,Calculated 284.2 MOS/KG (273-304); Potassium 3.6 MMOL/L (3.5-5.1)
[2021-06-07] MEDS: SPIRONOLACTONE 25 MG TABLET PO SCH (08:49)
[2021-06-07] MEDS: PANTOPRAZOLE 40 MG TABLET PO SCH (08:49)
[2021-06-07] MEDS: ASCORBIC ACID 500 MG TABLET PO SCH ×2 (08:49→21:50)
[2021-06-07] MEDS: carvediloL 3.125 MG TABLET PO SCH ×2 (08:50→21:47)
[2021-06-07] MEDS: SILDENAFIL 20 MG TABLET PO SCH ×3 (08:50→21:46)
[2021-06-07] MEDS: MULTIVITAMIN (CENTRUM) TABLET PO SCH (08:50)
[2021-06-07] MEDS: sitaGLIPtin 25 MG TABLET PO SCH (08:50)
[2021-06-07] MEDS: FUROSEMIDE 80 MG TABLET PO SCH (08:50)
[2021-06-07] MEDS: APIXABAN 2.5 MG TABLET PO SCH ×2 (08:50→21:50)
[2021-06-07] MEDS: DOCUSATE SODIUM 100 MG CAPSULE PO SCH ×2 (08:50→21:50)
[2021-06-07] MEDS: SOTALOL 80 MG TABLET PO SCH ×2 (08:50→21:47)
[2021-06-07] MEDS: ASPIRIN EC 81 MG TABLET PO SCH (08:50)
[2021-06-07] MEDS ORDERED: TUBERCULIN SKIN TEST 0.1 ML SYRINGE INTRADERM ONE (14:22)
[2021-06-07] MEDS: FUROSEMIDE 40 MG TABLET PO SCH (15:33)
[2021-06-07] MEDS ORDERED: TOLTERODINE LA 2 MG CAPSULE PO SCH (21:00)
[2021-06-07] MEDS: SIMVASTATIN 10 MG TABLET PO SCH (21:50)
[2021-06-08] MEDS: ALBUTEROL/IPRATROPIUM 3 ML NEB RESP TX SCH ×2 (00:46→07:10)
[2021-06-08] MEDS: SPIRONOLACTONE 25 MG TABLET PO SCH (08:36)
[2021-06-08] MEDS: SOTALOL 80 MG TABLET PO SCH (08:36)
[2021-06-08] MEDS: SILDENAFIL 20 MG TABLET PO SCH (08:37)
[2021-06-08] MEDS: sitaGLIPtin 25 MG TABLET PO SCH (08:37)
[2021-06-08] MEDS: carvediloL 3.125 MG TABLET PO SCH (08:37)
[2021-06-08] MEDS: PANTOPRAZOLE 40 MG TABLET PO SCH (08:37)
[2021-06-08] MEDS: APIXABAN 2.5 MG TABLET PO SCH (08:37)
[2021-06-08] MEDS: ASCORBIC ACID 500 MG TABLET PO SCH (08:37)
[2021-06-08] MEDS: ASPIRIN EC 81 MG TABLET PO SCH (08:37)
[2021-06-08] MEDS: MULTIVITAMIN (CENTRUM) TABLET PO SCH (08:37)
[2021-06-08] MEDS: FUROSEMIDE 80 MG TABLET PO SCH (08:38)
[2021-06-08] MEDS: DOCUSATE SODIUM 100 MG CAPSULE PO SCH (08:38)
[2021-06-08 09:12] VITALS: BP 111/73
== END 2021-06-08 11:23 | DRG 292 ==
LOC: EDBD → EDUNIT# → N.ED 17:33 → N.EDINP 21:23 → N.TELEN 06-02 00:46
PROVIDERS: ADMIT Family Medicine; ATTEND Family Medicine

== ENCOUNTER 2021-06-23 08:46 | Inpatient (IN) ==
[2021-06-23] MEDS ORDERED: FUROSEMIDE 100 MG/10 ML VIAL IV STA (09:32)
[2021-06-23 09:41] LABS: Basophils % 0.3 % (0.0-0.8); Eosinophils # 0.4 10*3/uL (0.0-0.87); Eosinophils % 6.1 % (0.00-10.9); Hematocrit 31.7 VOL% (35.7-47.0); Hemoglobin 9.9 GM/DL (12.0-16.0); Immature Granulocytes % 0.5 %; Immature Granulocytes Absolute 0.03 #; Lymphocytes # 0.7 10*3/uL (1.4-4.0); Lymphocytes % 11.1 % (21.3-54.2); Mean Corpuscular HGB Conc 31.2 GM/DL (32-36); Mean Corpuscular Volume 91.1 FL (87-102); Mean Platelet Volume 10.8 FL (9.6-12.0); Monocytes % 7.3 % (1.7-12.7); Neutrophils % 74.7 % (38.7-73.9); Platelet Count 101 T/CUMM (130-400); Red Blood Count 3.48 MC/CUMM (3.8-5.5); Red Cell Distribution Width 15.9 % (9.3-17.3); White Blood Count 6.2 T/CUMM (4-12)
[2021-06-23 09:54] LABS: INR 1.1; PT Patient Result 12.5 SECS (10.5-12.0)
[2021-06-23 10:09] LABS: Albumin 3.3 G/DL (3.4-5.0); Bilirubin,Total 0.7 MG/DL (0.20-1.00); Calcium 8.7 MG/DL (8.5-10.1); Osmolality,Calculated 280.1 MOS/KG (273-304); Potassium 4.3 MMOL/L (3.5-5.1); Total Protein 6.9 G/DL (6.4-8.2)
[2021-06-23] MEDS ORDERED: ONDANSETRON 4 MG/2 ML VIAL IV PRN (11:19)
[2021-06-23] MEDS ORDERED: ACETAMINOPHEN 325 MG TABLET PO PRN (11:19)
[2021-06-23] MEDS ORDERED: GLUCAGON 1 MG VIAL IM PRN (11:19)
[2021-06-23] MEDS ORDERED: DEXTROSE 50% 25 GM/50 ML SYRINGE IV PRN (11:19)
[2021-06-23] MEDS ORDERED: ALBUTEROL/IPRATROPIUM 3 ML NEB RESP TX PRN (11:21)
[2021-06-23] MEDS ORDERED: ALBUTEROL 2.5 MG/3 ML NEB RESP TX PRN (12:26)
[2021-06-23] MEDS: FUROSEMIDE 40 MG TABLET PO SCH (18:10)
[2021-06-23] MEDS ORDERED: NON-FORMULARY MEDICATION (Docusate Sodium Cap [Colace Cap] 100 MG) PO SCH (21:00)
[2021-06-23] MEDS ORDERED: carvediloL 3.125 MG TABLET PO SCH (21:00)
[2021-06-23] MEDS ORDERED: SERTRALINE 25 MG TABLET PO ONE (23:40)
[2021-06-23] MEDS: GABAPENTIN 300 MG CAPSULE PO SCH (23:44)
[2021-06-23] MEDS: APIXABAN 2.5 MG TABLET PO SCH (23:44)
[2021-06-23] MEDS: SOTALOL 80 MG TABLET PO SCH (23:44)
[2021-06-23] MEDS: TOLTERODINE LA 2 MG CAPSULE PO SCH (23:44)
[2021-06-23] MEDS: DOCUSATE SODIUM 100 MG CAPSULE PO SCH (23:44)
[2021-06-23] MEDS: ASCORBIC ACID 500 MG TABLET PO SCH (23:44)
[2021-06-23] MEDS: carvediloL 3.125 MG TABLET PO SCH (23:44)
[2021-06-23] MEDS: SIMVASTATIN 20 MG TABLET PO SCH (23:45)
[2021-06-23] MEDS: SILDENAFIL 20 MG TABLET PO SCH (23:45)
[2021-06-23] MEDS: BUDESONIDE/FORMOTEROL 160-4.5 INHALER 6 GM INH SCH (23:49)
[2021-06-24 06:02] LABS: Basophils % 0.3 % (0.0-0.8); Eosinophils # 0.4 10*3/uL (0.0-0.87); Eosinophils % 7.7 % (0.00-10.9); Hematocrit 29.2 VOL% (35.7-47.0); Hemoglobin 9.3 GM/DL (12.0-16.0); Immature Granulocytes % 0.5 %; Immature Granulocytes Absolute 0.03 #; Lymphocytes # 0.8 10*3/uL (1.4-4.0); Lymphocytes % 14.1 % (21.3-54.2); Mean Corpuscular HGB Conc 31.8 GM/DL (32-36); Mean Corpuscular Volume 90.1 FL (87-102); Mean Platelet Volume 11.1 FL (9.6-12.0); Monocytes % 7.3 % (1.7-12.7); Neutrophils % 70.1 % (38.7-73.9); Platelet Count 101 T/CUMM (130-400); Red Blood Count 3.24 MC/CUMM (3.8-5.5); Red Cell Distribution Width 16.1 % (9.3-17.3); White Blood Count 5.7 T/CUMM (4-12)
[2021-06-24 06:17] LABS: Albumin 2.7 G/DL (3.4-5.0); Bilirubin,Total 0.8 MG/DL (0.20-1.00); Calcium 8.4 MG/DL (8.5-10.1); Osmolality,Calculated 287.5 MOS/KG (273-304); Potassium 3.6 MMOL/L (3.5-5.1); Total Protein 6.2 G/DL (6.4-8.2)
[2021-06-24] MEDS ORDERED: FUROSEMIDE 40 MG/4 ML VIAL IV ONE (08:15)
[2021-06-24] MEDS ORDERED: FUROSEMIDE 80 MG TABLET PO SCH (09:00)
[2021-06-24] MEDS: sitaGLIPtin 25 MG TABLET PO SCH (09:03)
[2021-06-24] MEDS: APIXABAN 2.5 MG TABLET PO SCH ×2 (09:03→22:22)
[2021-06-24] MEDS: ASPIRIN EC 81 MG TABLET PO SCH (09:03)
[2021-06-24] MEDS: SOTALOL 80 MG TABLET PO SCH ×2 (09:03→22:21)
[2021-06-24] MEDS: SPIRONOLACTONE 25 MG TABLET PO SCH (09:03)
[2021-06-24] MEDS: SILDENAFIL 20 MG TABLET PO SCH ×3 (09:03→22:22)
[2021-06-24] MEDS: ASCORBIC ACID 500 MG TABLET PO SCH ×2 (09:04→22:22)
[2021-06-24] MEDS: PANTOPRAZOLE 40 MG TABLET PO SCH (09:04)
[2021-06-24] MEDS: MULTIVITAMIN (CENTRUM) TABLET PO SCH (09:04)
[2021-06-24] MEDS: DOCUSATE SODIUM 100 MG CAPSULE PO SCH ×2 (09:04→22:22)
[2021-06-24] MEDS: carvediloL 3.125 MG TABLET PO SCH ×2 (09:04→22:22)
[2021-06-24] MEDS: BUDESONIDE/FORMOTEROL 160-4.5 INHALER 6 GM INH SCH ×2 (09:25→22:25)
[2021-06-24] MEDS ORDERED: SERTRALINE 25 MG TABLET PO SCH (21:30)
[2021-06-24] MEDS: TOLTERODINE LA 2 MG CAPSULE PO SCH (22:21)
[2021-06-24] MEDS: SIMVASTATIN 20 MG TABLET PO SCH (22:21)
[2021-06-24] MEDS: GABAPENTIN 300 MG CAPSULE PO SCH (22:22)
[2021-06-25] MEDS: FUROSEMIDE 40 MG TABLET PO SCH (01:01)
[2021-06-25 05:53] LABS: Basophils % 0.4 % (0.0-0.8); Eosinophils # 0.5 10*3/uL (0.0-0.87); Eosinophils % 9.8 % (0.00-10.9); Hematocrit 28.6 VOL% (35.7-47.0); Hemoglobin 9.1 GM/DL (12.0-16.0); Immature Granulocytes % 0.4 %; Immature Granulocytes Absolute 0.02 #; Lymphocytes # 0.9 10*3/uL (1.4-4.0); Lymphocytes % 17.8 % (21.3-54.2); Mean Corpuscular HGB Conc 31.8 GM/DL (32-36); Mean Corpuscular Volume 90.5 FL (87-102); Mean Platelet Volume 11.3 FL (9.6-12.0); Monocytes % 8.2 % (1.7-12.7); Neutrophils % 63.4 % (38.7-73.9); Platelet Count 89 T/CUMM (130-400); Red Blood Count 3.16 MC/CUMM (3.8-5.5); White Blood Count 4.9 T/CUMM (4-12)
[2021-06-25 06:23] LABS: Platelet Estimate Decreased
[2021-06-25] MEDS ORDERED: FUROSEMIDE 40 MG/4 ML VIAL IV SCH (08:00)
[2021-06-25 09:22] VITALS: BP 114/50
[2021-06-25] MEDS: SPIRONOLACTONE 25 MG TABLET PO SCH (09:25)
[2021-06-25] MEDS: SILDENAFIL 20 MG TABLET PO SCH (09:25)
[2021-06-25] MEDS: PANTOPRAZOLE 40 MG TABLET PO SCH (09:25)
[2021-06-25] MEDS: APIXABAN 2.5 MG TABLET PO SCH (09:25)
[2021-06-25] MEDS: SOTALOL 80 MG TABLET PO SCH (09:25)
[2021-06-25] MEDS: carvediloL 3.125 MG TABLET PO SCH (09:26)
[2021-06-25] MEDS: MULTIVITAMIN (CENTRUM) TABLET PO SCH (09:26)
[2021-06-25] MEDS: ASCORBIC ACID 500 MG TABLET PO SCH (09:26)
[2021-06-25] MEDS: DOCUSATE SODIUM 100 MG CAPSULE PO SCH (09:26)
[2021-06-25] MEDS: sitaGLIPtin 25 MG TABLET PO SCH (09:31)
[2021-06-25] MEDS: ASPIRIN EC 81 MG TABLET PO SCH (09:31)
[2021-06-25] MEDS: BUDESONIDE/FORMOTEROL 160-4.5 INHALER 6 GM INH SCH (09:34)
== END 2021-06-25 12:05 | disposition swing bed (61) | DRG 291 ==
LOC: EDBD → EDUNIT# → N.ED 08:46 → N.EDINP 11:19 → N.TELEN 15:13
PROVIDERS: ADMIT Family Medicine; ATTEND Family Medicine